=== PATIENT | male | born 1950 | race Two or more races ===

== ENCOUNTER 2016-02-29 23:09 | Inpatient (IN) | payer OTHER ==
[2016-02-29] MEDS ORDERED: NS 2,000 ML IV ONE (23:19)
--- NOTE | 2016-02-29 23:26 | EDPHY ---
H & P Stated Complaint: unresponsive all day with c/o CP per son and HPI/ROS: HPI CHIEF COMPLAINT: Unresponsive HISTORY OF PRESENT ILLNESS: This patient is a 65-year-old male significant past medical history for CVA with left-sided hemiparesis, sepsis, AFib, hypertension, diabetes, seizure disorder, aspiration pneumonia, he presents emergency room with his son and by private vehicle upon arrival to the triage room is noted that he has right gaze preference with significant weakness to the left side, and does not appear very well he is immediately brought back to ER room 1 where he is found to be hypotensive in the 80s systolic. Does have a right gaze preference, and left-sided hemiparesis on exam. His and son tell me that he has been like this all day he has been sitting on the couch slumped over to the right. He states that they think he was last normal about a week ago however states that they had a greatly help him get to the couch around 230 today. The knows that he has been weak all day. Patient did complain of some chest discomfort. Upon arrival here in emergency room I did evaluate him he is hypotensive he has significant weakness on the left side which may be baseline, he has a right gaze preference, he appears ill. Past Medical History: Aspiration pneumonia, CVA, left-sided hemiparesis, sepsis , AFib, hypertension, diabetes, seizure Past Surgical History: Peg tube Social History: lives at home. Family History: Noncontributory ROS REVIEW OF SYSTEMS: A comprehensive 10 point review of systems is otherwise negative aside from elements mentioned in the history of present illness. Exam Constitutional appears ill, right-sided gaze preference, dehydrated, triage nursing summary reviewed, vital signs reviewed, awake/alert. ( vital signs noted to be hypoxic, tachycardic) Eyes normal conjunctivae and sclera, EOMI, PERRLA. HENT normal inspection, atraumatic, dry mucous membranes , no epistaxis, neck supple/ no meningismus, no raccoon eyes. Respiratory clear to auscultation bilaterally, normal breath sounds, no respiratory distress, no wheezing. Cardiovascular rate normal, regular rhythm, no murmur, no edema, distal pulses normal. Gastrointestinal soft, non-tender, no rebound, no guarding, normal bowel sounds, no distension, no pulsatile mass. Genitourinary no CVA tenderness. Musculoskeletal no midline vertebral tenderness, full range of motion, no calf swelling, no tenderness of extremities, no meningismus, good pulses, neurovascularly intact. Skin pink, warm, & dry, no rash, skin atraumatic. Neurologic right-sided gaze preference, left-sided upper extremity and left lower extremity weakness 1+ strength, upper and lower. Pupils are equal. Psychiatric normal mood/affect. Heme/Lymph/Immune no lymphadenopathy. Differential Diagnosis: includes but is not limited to in a particular order sepsis, septic shock, dehydration, kidney failure, electrolyte abnormality, pneumonia, intracranial bleed, stroke, cardiac arrhythmia, acute CA Medical Decision Making: this patient had 2 large-bore IVs established be resuscitated with IV fluids due to hypotension, will check blood pressure in both arms, patient had a chest x-ray, CT scan of the head, CT scan of the chest will check blood work EKG patient will need to be admitted we will obtain blood cultures. Re-evaluation: EKG interpretation by me on record in [employer] system. Impression time of EKG 2313, this is AFib rate of 80 do not appreciate acute ischemic changes specifically no ST elevation. CT scan of the Head without IV contrast The results of the study are negative for acute intracranial abnormality, there are multiple old infarcts, no acute bleed, The study was read by Dr. Flores I viewed the images myself on the PACS system. CT scan of the Chest with IV contrast The results of the study are negative for anything acute there is mucous plugging noted in the bilateral lung champion however no focal pneumonia. The study was read by Dr. Myo. I viewed the images myself on the PACS system. ED x-ray: chest x-ray one view negative for acute cardiopulmonary disease image interpreted by myself. 0123: re-evaluation at this time this patient is not febrile his blood pressure initially was hypotensive in the 80s he did receive a 2 L fluid bolus here in the emergency room, and his blood work was delayed due to multiple draws and the lab telling us that his labs are abnormal could we re-draw. They did Release them. We did redraw them and his BMP is consistently hypernatremic. He does appear dehydrated on exam. 0132: I did re-evaluate this patient is blood pressure is now in the 120s he is moving everything appropriately he does follow with good eye tracking he does seem improved. He remains afebrile. Does have Figueroa catheter in place with good urine output. I did go over his blood work and electrolytes with Nephrology and spoke specifically with Dr. Chase. He recommends this patient being started on D5W at 75 cc an hour and check a BMP or early this morning 5AM/ 6AM. This patient does appear hypovolemic hypernatremic however does not appear severely dehydrated. 0130: Consulted Dr. Chase. Will See Patient in-house. Critical Care: Total Critical Care Time Spent Managing this Patient: 60 Minutes. This time was spent Exclusively with this patient. This Care was exclusive of procedures. The Organ System/life at risk was neurologic, cardiogenic, electrolyte, dehydration This Patient was in Critical Condition because severe electrolyte abnormalities , initially unresponsive 0133: I patient hospitalist service to admit this patient to the intensive care unit. 0157: spoke with the hospitalist service Dr. Esteban who agrees to admit this patient. Of note I have ordered this patient IV potassium replacement, IV magnesium, IV calcium and D5 water. Patient at this time is hemodynamically stable and stable for transfer to the ICU is blood pressure is greatly improved he remains afebrile. EKG repeat: Time of EKG 1:40 a.m. this is underlying AFib rate of 95. I do not appreciate acute ischemic changes. Source: Patient, Family - Medical/Surgical History Hx Asthma: No Hx Chronic Respiratory Disease: No Hx Diabetes: No Hx Cardiac Disease: Yes Hx Renal Disease: No Hx Cirrhosis: No Hx Alcoholism: No Hx HIV/AIDS: No Hx Splenectomy or Spleen Trauma: No Other PMH: HTN, x3CVA, aphasic. check viewer present for doctor and review patient history - Social History Smoking Status: Never smoked Constitutional: Initial Vital Signs Temperature (C) 36.4 C 02/29/16 23:12 Heart Rate 76 02/29/16 23:12 Respiratory Rate 20 02/29/16 23:12 Blood Pressure 88/60 L 02/29/16 23:12 O2 Sat (%) 87 L 02/29/16 23:12 O2 Delivery Mode Nasal Cannula O2 (L/minute) 2 Allergies/Adverse Reactions: No Known Allergies Allergy (Verified 02/01/16 03:33) Home Medications: Medication Instructions Recorded Metoprolol Tartrate [Lopressor 100 50 mg PO BID 04/20/15 mg (*)] Propafenone HCl [Rythmol 150mg (*)] 150 mg PO BID #0 tab 11/17/14 Enalapril Maleate [Vasotec 10 MG 10 mg PO BID 02/01/16 (*)] Warfarin Sodium [Coumadin 2MG (*)] 2 mg PO TUTHSA@16 02/01/16 Warfarin Sodium [Coumadin 2MG (*)] 4 mg PO SUWEFR@16 02/01/16 hydrALAZINE [Apresoline] 25 mg PO Q8 PRN #90 tab 02/11/16 Phenytoin Sodium Extended 100 mg PO HS 03/01/16 [Dilantin (*)] Medical Decision Making - Data Points Laboratory Results: Laboratory Results 03/01/16 01:00 03/01/16 01:00 Medications Given: Discontinued Medications Sodium Chloride (Ns) 2,000 mls @ 0 mls/hr IV ONCE ONE PRN Reason: As Directed Stop: 02/29/16 23:20 Last Admin: 02/29/16 23:29 Dose: 2,000 mls Potassium Chloride (Potassium Cl 20 Meq (Premix)) 100 mls @ 50 mls/hr IV EDNOW ONE Stop: 03/01/16 02:24 Last Admin: 03/01/16 01:08 Dose: 100 mls Calcium Gluconate (Calcium Gluconate 1 Gm (Premix)) 50 mls @ 100 mls/hr IV EDNOW ONE Stop: 03/01/16 01:54 Last Admin: 03/01/16 02:20 Dose: 50 mls Magnesium Sulfate (Magnesium Sulf 2 Gm (Premix)) 50 mls @ 50 mls/hr IV EDNOW ONE Stop: 03/01/16 02:24 Last Admin: 03/01/16 01:55 Dose: 50 mls Sodium Chloride (Ns) 1,000 mls @ 0 mls/hr IV ONCE ONE PRN Reason: Wide Open Stop: 03/01/16 12:00 Last Admin: 03/01/16 13:34 Dose: 1,000 mls Departure - Departure Disposition: [facility] Acute Clinical Impression: Acute hypernatremia, Dehydration Condition: Critical
[2016-02-29 23:45] LABS: % IMMATURE GRANULYOCYTES 0.5 % (0.0-1.1); ABSOLUTE IMMATURE GRANULOCYTES 0.06 10^3/uL (0.00-0.10); ADD DIFF? NO; ADD MORPH? NO; ADD SCAN? NO; ATYPICAL LYMPHOCYTE FLAG 10 (0-99); FRAGMENT RBC FLAG 20 (0-99); HEMATOCRIT 46.8 % (40.0-51.0); LEFT SHIFT FLG 10 (0-99); LIPEMIA HEMOLYSIS FLAG 80 (0-99); MEAN CELL HEMOGLOBIN 29.8 pg (27.9-34.1); MEAN CELL HEMOGLOBIN CONCENTR. 32.1 g/dL (32.4-36.7); PLATELET CLUMPS FLAG 40 (0-99); PLATELET COUNT 167 10^3/uL (150-400); RED BLOOD CELL COUNT 5.03 10^6/uL (4.40-6.38); RED CELL DISTRIBUTION WIDTH 15.9 % (11.5-15.2)
[2016-02-29 23:49] LABS: COLOR YELLOW; LEUKOCYTE ESTERASE,URINE NEGATIVE (NEGATIVE); NITRITE,URINE NEGATIVE (NEGATIVE)
--- NOTE | 2016-02-29 23:59 | CPEKG ---
Heart Rate: 80 RR Interval: 750 P-R Interval: 190 QRSD Interval: 84 QT Interval: 368 QTC Interval: 425 P Turpin: 0 QRS Turpin: 67 T Wave Turpin: 53 EKG Severity - BORDERLINE ECG - EKG Impression: UNKNOWN RHYTHM, IRREGULAR RATE 58-103 EKG Impression: LOW VOLTAGE IN FRONTAL LEADS Electronically Signed By: Dawson Birmingham 02-Mar-2016 07:02:04
[2016-03-01 00:07] LABS: BASE EXCESS -4.4 mEq/L (-2.5-2.5); BICARBONATE 19 mEq/L (22-26); MEASURED OXYGEN SATURATION 95 % (92-95); PCO2 32 mmHg (34-38); PO2 77 mmHg (65-75); TCO2 20 mEq/L (23-27)
[2016-03-01 00:16] LABS: ALANINE AMINOTRANSFERASE 28 IU/L (21-72); ALKALINE PHOSPHATASE 39 IU/L (38-126); ANION GAP 6 mEq/L (8-16); ASPARTATE AMINOTRANSFERASE 21 IU/L (17-59); BILIRUBIN,TOTAL < 0.1 mg/dL (0.1-1.4); BILIRUBIN-CONJUGATED 0.1 mg/dL (0.0-0.5); CARBON DIOXIDE 12 mEq/l (22-31); CHLORIDE 141 mEq/L (97-110); CREATININE 0.6 mg/dL (0.7-1.3); ETHANOL SERUM < 10 mg/dL (0-10); GLOMERULAR FILTRATION RATE > 60; GLUCOSE 54 mg/dL (70-100); MAGNESIUM 1.2 mg/dL (1.6-2.3); SODIUM 159 mEq/L (134-144); TOTAL PROTEIN 3.1 g/dL (6.3-8.2)
[2016-03-01 00:18] LABS: ALBUMIN < 1.0 g/dL (3.5-5.0)
[2016-03-01 00:20] LABS: CALCIUM 3.6 mg/dL (8.5-10.4); POTASSIUM 2.2 mEq/L (3.5-5.2)
[2016-03-01] MEDS ORDERED: POTASSIUM Cl (KCl) 100 ML IV ONE (00:25)
[2016-03-01 00:28] LABS: PROTIME(PATIENT) 60.4 SEC (12.0-15.0)
[2016-03-01] MEDS ORDERED: IOPAMIDOL (ISOVUE-300) 50 ML VIAL IV ONE (00:28)
[2016-03-01 00:29] LABS: APTT 64.5 SEC (23.0-38.0)
[2016-03-01 00:34] LABS: TROPONIN I < 0.012 ng/mL (0-0.034)
[2016-03-01 00:38] LABS: CREATINE KINASE-MB FRACTION < 0.22 ng/mL (0-3.19)
[2016-03-01 00:43] LABS: INR 6.76 (0.83-1.16)
[2016-03-01 00:51] LABS: ANION GAP 6 mEq/L (8-16); CARBON DIOXIDE 18 mEq/l (22-31); CHLORIDE 137 mEq/L (97-110); CREATININE 0.9 mg/dL (0.7-1.3); GLOMERULAR FILTRATION RATE > 60; GLUCOSE 66 mg/dL (70-100); POTASSIUM 3.2 mEq/L (3.5-5.2)
[2016-03-01 00:54] LABS: CALCIUM 5.1 mg/dL (8.5-10.4); SODIUM 161 mEq/L (134-144)
[2016-03-01 01:09] LABS: % IMMATURE GRANULYOCYTES 0.6 % (0.0-1.1); ABSOLUTE IMMATURE GRANULOCYTES 0.08 10^3/uL (0.00-0.10); ADD DIFF? NO; ADD MORPH? NO; ADD SCAN? NO; ATYPICAL LYMPHOCYTE FLAG 10 (0-99); FRAGMENT RBC FLAG 20 (0-99); HEMATOCRIT 42.7 % (40.0-51.0); HEMOGLOBIN 13.4 g/dL (13.7-17.5); LEFT SHIFT FLG 10 (0-99); LIPEMIA HEMOLYSIS FLAG 80 (0-99); MEAN CELL HEMOGLOBIN 29.6 pg (27.9-34.1); MEAN CELL HEMOGLOBIN CONCENTR. 31.4 g/dL (32.4-36.7); MEAN CELL VOLUME 94.3 fL (81.5-99.8); MEAN PLATELET VOLUME 14.4 fL (8.7-11.7); PLATELET CLUMPS FLAG 10 (0-99); PLATELET COUNT 148 10^3/uL (150-400); RED BLOOD CELL COUNT 4.53 10^6/uL (4.40-6.38)
[2016-03-01 01:18] LABS: ANION GAP 11 mEq/L (8-16); CALCIUM 7.4 mg/dL (8.5-10.4); CARBON DIOXIDE 21 mEq/l (22-31); CHLORIDE 131 mEq/L (97-110); CREATININE 1.3 mg/dL (0.7-1.3); ETHANOL SERUM < 10 mg/dL (0-10); GLOMERULAR FILTRATION RATE 55; GLUCOSE 83 mg/dL (70-100); MAGNESIUM 2.2 mg/dL (1.6-2.3); POTASSIUM 3.9 mEq/L (3.5-5.2)
[2016-03-01 01:20] LABS: SODIUM 163 mEq/L (134-144)
[2016-03-01] MEDS ORDERED: CALCIUM GLUCONATE 50 ML IV ONE (01:25)
[2016-03-01] MEDS ORDERED: MAGNESIUM SULF 2 GM/WATER 50 ML IV ONE (01:25)
[2016-03-01 01:31] LABS: INR 3.22 (0.83-1.16); PROTIME(PATIENT) 33.4 SEC (12.0-15.0)
[2016-03-01 01:32] LABS: APTT 41.9 SEC (23.0-38.0)
[2016-03-01 01:41] LABS: TROPONIN I < 0.012 ng/mL (0-0.034)
[2016-03-01] MEDS ORDERED: D5W 1,000 ML IV SCH (01:45)
[2016-03-01] MEDS ORDERED: D50W 25 GM/50 ML SYR IVP PRN (03:06)
[2016-03-01 05:28] LABS: IONIZED CALCIUM 1.18 MMOL/L (1.12-1.30)
[2016-03-01 05:34] LABS: HEMATOCRIT 45.1 % (40.0-51.0); HEMOGLOBIN 14.1 g/dL (13.7-17.5); MEAN CELL HEMOGLOBIN 29.8 pg (27.9-34.1); MEAN CELL HEMOGLOBIN CONCENTR. 31.3 g/dL (32.4-36.7); MEAN CELL VOLUME 95.3 fL (81.5-99.8); RED BLOOD CELL COUNT 4.73 10^6/uL (4.40-6.38); RED CELL DISTRIBUTION WIDTH 15.9 % (11.5-15.2)
[2016-03-01 05:43] LABS: INR 3.16 (0.83-1.16); PROTIME(PATIENT) 32.9 SEC (12.0-15.0)
[2016-03-01 05:50] LABS: ANION GAP 9 mEq/L (8-16); CALCIUM 8.2 mg/dL (8.5-10.4); CARBON DIOXIDE 25 mEq/l (22-31); CHLORIDE 128 mEq/L (97-110); CREATININE 1.3 mg/dL (0.7-1.3); GLOMERULAR FILTRATION RATE 55; GLUCOSE 96 mg/dL (70-100); POTASSIUM 4.8 mEq/L (3.5-5.2)
[2016-03-01 05:54] LABS: SODIUM 162 mEq/L (134-144)
[2016-03-01 06:02] LABS: TROPONIN I 0.016 ng/mL (0-0.034)
--- NOTE | 2016-03-01 07:02 | CT ---
CT Scan of Head (Without Contrast) Clinical Indications: Unresponsive. Technique: Axial CT images were acquired from foramen magnum through vertex, without intravenous contrast. Soft tissue and bone windows were reviewed on the computer workstation. Images were reconstructed down to 1.25 mm images. Dose reduction techniques were utilized. Comparison: January 12, 2015. Findings: Numerous cortical infarcts in both hemispheres are unchanged. Lacunar infarcts in right thalamus and basal ganglia are unchanged. Old infarct of left internal capsule is unchanged. No new lesions are identified. No evidence of intracranial hemorrhage. Chronic diffuse cortical atrophy is severe. Bone windows demonstrate no fracture. Paranasal sinuses and mastoid air cells are normally aerated. Impression: Multiple bilateral cortical and lacunar infarcts. No acute abnormality is identified. I discussed results with Dr. Dawson Birmingham at 0015 hours. [facility]
--- NOTE | 2016-03-01 07:09 | DX ---
Portable Chest February 29, 2016 2332 hours History: Chest pain. Comparison: February 11, 2016. Findings: Frontal view (only) shows clear lungs and no masses. Heart size and pulmonary vessels appear normal. No evidence of pleural effusion. Impression: Negative frontal chest radiograph. MTDD
--- NOTE | 2016-03-01 07:25 | CT ---
CT Scan of the Chest (With Contrast) Clinical Indications: Unresponsive. History of atrial fibrillation and diabetes , dyspnea, chest pain. Technique: During power injection of 80 mL Isovue-300 intravenously, multidetector [address] imaging was performed from the superior thoracic inlet to the diaphragm. The radiologist manipulated images at the computer workstation. Dose reduction techniques were utilized. Comparison: Previous noncontrast CT January 14, 2015. Findings: Prior mild infiltrate in the superior segment of the right lower lobe is not currently visualized, although the patient did not do a good job holding his breath. There is chronic calcified coronary artery disease of the LAD and circumflex vessels. No thrombus is identified in the left atrium or left atrial appendage. There is no pericardial effusion. There is no obvious pneumonia or pleural effusion. There is bilateral lower lobe bronchial wall thickening with scattered mucous plugging without evidence of peripheral atelectasis. There is shotty bilateral noncalcified hilar adenopathy. There is no evidence of a lung mass. No pulmonary nodule is identified. The upper thoracic esophagus looks circumferentially thickened, similar to January 2015 and there is a small amount of fluid in the mid thoracic esophagus where there is an air fluid level present, findings suggesting the possibility of either chronic esophagitis related to reflux or an esophageal peristaltic problem. Doubt esophageal carcinoma considering the stability since 2014. There is predominantly noncalcified slightly irregular atherosclerotic plaque involving the thoracic aorta diffusely, without evidence of ulceration or a flow-limiting stenosis. There is no evidence of an aortic dissection or aneurysm. The thyroid gland is unremarkable. No skeletal pathology other than some degenerative spurring in the thoracic spine. Impression: 1. Lower lobe bronchitis with mucous plugging, but without pneumonia or atelectasis. 2. Chronic coronary artery disease without failure. 3. Esophagus consistent with either esophagitis related to reflux or an esophageal peristaltic abnormality. This patient might benefit from an esophagram and/or endoscopic evaluation. 4. No cardiac thrombus identified. Result discussed with Dr. Birmingham at 1 a.m. Final results are concordant with the initial interpretation. General information for patients regarding this examination can be found at [email or web address]. If you have questions or comments about this report, please contact me at (hospital) or [phone] (cell). POS99 MTDD
--- NOTE | 2016-03-01 07:30 | PDGENHP ---
History and Physical - Chief Complaint altered mental status - History of Present Illness Patient is a 65-year-old male with history of multiple CVAs with resulting vascular dementia, chronic dysphagia and left-sided hemiparesis, atrial fibrillation on systemic anticoagulation, high diabetes, hypertension, seizure disorder and hospitalization for aspiration pneumonia who presents the hospital with decreased mental status per family. Patient unable to provide history due to dementia so history obtained largely from the patient's son and . Per son, patient has been more lethargic since yesterday. Over the course of the evening he began complaining of abdominal/chest pain and coughing. By the evening patient was unarousable to family so they decided to bring him to the hospital. Per patient has been taking oral intake normally with a past 2 weeks, with no obvious evidence aspiration event. Was also not complaining of nausea, vomiting, diarrhea or dysuria. On arrival to the ED patient was initially mildly hypoxic, hypotensive, unresponsive with possible right gaze preference. He was given 2 L IV fluid bolus and labs were drawn which revealed significant hypernatremia and hyperchloremia. CT of the head was then obtained did not reveal any acute infarct or hemorrhage. Renal was consulted and recommended D5W which was initiated in the ER. Patient was then admitted to the hospital service for further management History Information - Allergies/Home Medication List Allergies/Adverse Reactions: No Known Allergies Allergy (Verified 02/01/16 03:33) Home Medications: Metoprolol Tartrate [Lopressor 100 mg (*)] 50 mg PO BID 06/02/14 [Last Taken ] Enalapril Maleate [Vasotec 10 MG (*)] 10 mg PO DAILY 02/01/16 [Last Taken ] Warfarin Sodium [Coumadin 2MG (*)] 4 mg PO SUMOTUWETHFR@02/01/16 [Last Taken 01/31/16] Warfarin Sodium [Coumadin 2MG (*)] 6 mg PO SA@02/01/16 [Last Taken 01/30/16] Phenytoin [Dilantin] 100 mg PO DAILY 03/01/16 [Last Taken Unknown] I have personally reviewed and updated: family history, medical history, social history, surgical history - Past Medical History atrial fibrillation (On Coumadin), CVA (Multiple CVAs, persistent left hemipareses, dysphagia with aspiration), dementia (Vascular dementia), diabetes type 2, hypertension, seizures - Surgical History Additional surgical history: hip fracture with intramedullary pinning 12/2014 - Family History Positive for: non-pertinent - Social History Smoking Status: Never smoked Alcohol Use: None Drug Use: None Additional social history: Lives at home with his and daughter who are primary caregivers. He is unable to speak, walk or feed himself. Review of Systems ROS: 10pt was reviewed & negative except for what was stated in HPI & below Physical Exam Temp Pulse Resp BP Pulse Ox 36.3 C 80 16 135/91 H 97 03/01/16 04:00 03/01/16 06:00 03/01/16 06:00 03/01/16 06:00 03/01/16 06:00 O2 (L/minute) 2 Constitutional: not in pain, chronically ill appearing Eyes: PERRL, anicteric sclera, EOMI Ears, Nose, Mouth, Throat: hearing normal, no oral mucosal ulcers, poor dentition, dry mucous membranes, No oral thrush Cardiovascular: regular rate and rhythym, no murmur, rub, or gallop, pulses symmetric bilaterally, No JVD, No edema Peripheral Pulses: 2+: dorsalis-pedis (R), dorsalis-pedis (L) Respiratory: no respiratory distress, no rales or rhonchi, clear to auscultation Gastrointestinal: normoactive bowel sounds, soft, non-tender abdomen, No tenderness, No guarding, No rebound Genitourinary: no bladder fullness, no bladder tenderness Skin: warm, normal color, no rashes or abrasions, no fluctuance, No mottled Neurologic: other (Oriented to person, not to date or Hospital; left hemiparesis strength 2/5, right 5/5) Lab Data & Imaging Review 03/01/16 05:15 03/01/16 05:15 WBC 11.90 10^3/uL (3.80-9.50) H 03/01/16 05:15 RBC 4.73 10^6/uL (4.40-6.38) 03/01/16 05:15 Hgb 14.1 g/dL (13.7-17.5) 03/01/16 05:15 POC Hgb 15.6 gm/dL (14.5-17.3) 02/29/16 23:17 Hct 45.1 % (40.0-51.0) 03/01/16 05:15 POC Hct 46 % (42.8-50.6) 02/29/16 23:17 MCV 95.3 fL (81.5-99.8) 03/01/16 05:15 MCH 29.8 pg (27.9-34.1) 03/01/16 05:15 MCHC 31.3 g/dL (32.4-36.7) L 03/01/16 05:15 RDW 15.9 % (11.5-15.2) H 03/01/16 05:15 Plt Count 152 10^3/uL (150-400) 03/01/16 05:15 MPV 14.4 fL (8.7-11.7) H 03/01/16 01:00 Neut % (Auto) 77.4 % (39.3-74.2) H 03/01/16 01:00 Lymph % (Auto) 14.0 % (15.0-45.0) L 03/01/16 01:00 [place] % (Auto) 4.6 % (4.5-13.0) 03/01/16 01:00 Eos % (Auto) 2.9 % (0.6-7.6) 03/01/16 01:00 Baso % (Auto) 0.5 % (0.3-1.7) 03/01/16 01:00 Nucleat RBC Rel Count 0.0 % (0.0-0.2) 03/01/16 01:00 Absolute Neuts (auto) 9.97 10^3/uL (1.70-6.50) H 03/01/16 01:00 Absolute Lymphs (auto) 1.80 10^3/uL (1.00-3.00) 03/01/16 01:00 Absolute Monos (auto) 0.59 10^3/uL (0.30-0.80) 03/01/16 01:00 Absolute Eos (auto) 0.38 10^3/uL (0.03-0.40) 03/01/16 01:00 Absolute Basos (auto) 0.07 10^3/uL (0.02-0.10) 03/01/16 01:00 Absolute Nucleated RBC 0.00 10^3/uL (0-0.01) 03/01/16 01:00 Immature Gran % 0.6 % (0.0-1.1) 03/01/16 01:00 Immature Gran # 0.08 10^3/uL (0.00-0.10) 03/01/16 01:00 PT 32.9 SEC (12.0-15.0) H 03/01/16 05:15 INR 3.16 (0.83-1.16) H 03/01/16 05:15 APTT 41.9 SEC (23.0-38.0) H 03/01/16 01:00 Puncture Site LEFT RADIAL 02/29/16 23:55 Patient Temperature 36.4 DEGREES 02/29/16 23:55 pCO2 32 mmHg (34-38) L 02/29/16 23:55 pO2 77 mmHg (65-75) H 02/29/16 23:55 Total CO2 20 mEq/L (23-27) L 02/29/16 23:55 ABG pH 7.40 (7.35-7.45) 02/29/16 23:55 ABG O2 Saturation 95 % (92-95) 02/29/16 23:55 ABG Base Excess -4.4 mEq/L (-2.5-2.5) L 02/29/16 23:55 VBG Lactic Acid 1.2 mmol/L (0.7-2.1) D 03/01/16 01:00 Total O2 Concentration 2.0 LITERS 02/29/16 23:55 POC Sodium 163 mEq/L (134-144) H 02/29/16 23:17 Sodium 162 mEq/L (134-144) H* 03/01/16 05:15 POC Potassium 5.8 mEq/L (3.3-5.0) H 02/29/16 23:17 Potassium 4.8 mEq/L (3.5-5.2) 03/01/16 05:15 POC Chloride 127 mEq/L (96-108) H 02/29/16 23:17 Chloride 128 mEq/L (97-110) H 03/01/16 05:15 Carbon Dioxide 25 mEq/l (22-31) 03/01/16 05:15 Bicarbonate 19 mEq/L (22-26) L 02/29/16 23:55 Anion Gap 9 mEq/L (8-16) 03/01/16 05:15 POC BUN 42 mg/dL (7-23) H 02/29/16 23:17 BUN 23 mg/dL (7-23) 03/01/16 05:15 Creatinine 1.3 mg/dL (0.7-1.3) 03/01/16 05:15 POC Creatinine 1.5 mg/dL (0.8-1.5) 02/29/16 23:17 Estimated GFR 55 03/01/16 05:15 Glucose 96 mg/dL (70-100) 03/01/16 05:15 POC Glucose 95 mg/dL (70-100) 02/29/16 23:17 Calcium 8.2 mg/dL (8.5-10.4) L 03/01/16 05:15 Ionized Calcium 1.18 MMOL/L (1.12-1.30) 03/01/16 05:15 Phosphorus 3.3 mg/dL (2.5-4.5) 03/01/16 05:15 Magnesium 3.0 mg/dL (1.6-2.3) H 03/01/16 05:15 Total Bilirubin < 0.1 mg/dL (0.1-1.4) L 02/29/16 23:30 Conjugated Bilirubin 0.1 mg/dL (0.0-0.5) 02/29/16 23:30 Unconjugated Bilirubin 0.0 mg/dL (0.0-1.1) 02/29/16 23:30 AST 21 IU/L (17-59) 02/29/16 23:30 ALT 28 IU/L (21-72) 02/29/16 23:30 Alkaline Phosphatase 39 IU/L (38-126) 02/29/16 23:30 Creatine Kinase 21 IU/L (0-224) 02/29/16 23:30 CK-MB (CK-2) Fraction < 0.22 ng/mL (0-3.19) 02/29/16 23:30 Troponin I 0.016 ng/mL (0-0.034) 03/01/16 05:15 NT-Pro-B Natriuret Pep 93 pg/mL (0-125) 02/29/16 23:30 Total Protein 3.1 g/dL (6.3-8.2) L 02/29/16 23:30 Albumin < 1.0 g/dL (3.5-5.0) L 02/29/16 23:30 Lipase 38.0 IU/L (23-300) 02/29/16 23:30 Urine Color YELLOW 02/29/16 23:30 Urine Appearance CLEAR 02/29/16 23:30 Urine pH 5.0 (5.0-7.5) 02/29/16 23:30 Ur Specific [place] 1.023 (1.002-1.030) 02/29/16 23:30 Urine Protein NEGATIVE (NEGATIVE) 02/29/16 23:30 Urine Ketones NEGATIVE (NEGATIVE) 02/29/16 23:30 Urine Blood NEGATIVE (NEGATIVE) 02/29/16 23:30 Urine Nitrate NEGATIVE (NEGATIVE) 02/29/16 23:30 Urine Bilirubin NEGATIVE (NEGATIVE) 02/29/16 23:30 Urine Urobilinogen NEGATIVE EU (0.2-1.0) 02/29/16 23:30 Ur Leukocyte Esterase NEGATIVE (NEGATIVE) 02/29/16 23:30 Ur Culture Indicated? NOT INDICATED (NI) 02/29/16 23:30 Urine Osmolality 704 mosmo/kg (300-900) 03/01/16 03:46 Ur Random Creatinine 57.5 mg/dL 03/01/16 03:46 Ur Random Sodium 175 mEq/L (30-90) H 03/01/16 03:46 Urine Glucose NEGATIVE (NEGATIVE) 02/29/16 23:30 Urine Opiates Screen NEGATIVE (NEGATIVE) 02/29/16 23:30 Urine Barbiturates NON-NEGATIVE (NEGATIVE) H 02/29/16 23:30 Ur Phencyclidine Scrn NEGATIVE (NEGATIVE) 02/29/16 23:30 Ur Amphetamine Screen NEGATIVE (NEGATIVE) 02/29/16 23:30 U Benzodiazepines Scrn NEGATIVE (NEGATIVE) 02/29/16 23:30 Urine Cocaine Screen NEGATIVE (NEGATIVE) 02/29/16 23:30 U Marijuana (THC) Screen NEGATIVE (NEGATIVE) 02/29/16 23:30 Ethyl Alcohol < 10 mg/dL (0-10) 03/01/16 01:00 Visualized and Interpreted Chest x-ray results: Yes Visualized and Interpreted imaging results: Yes Interpretation: CT Head: chronic b/l lacunar infarcts, no acute abnormality. CT chest: mucus plugging, with bronchitis EKG Interpretation: Positive for: normal sinsus rhythm Assessment & Plan Assessment: Pt is 65/M with vascular dementia, DM2, HTN, Afib on systemic anticoagulation, multiple CVAs with residual L hemiparesis, chronic dysarthria, chronic dysphagia with aspiration and seizure disorder who presents to the ED with altered mental status. ED work up reveals marked hypernatremia. Plan: # acute on chronic encephalopathy Acute encephalopathy likely related to hypernatremia, with possible seizure also noted in ED. ON my evaluation, patient was able to verbalize and follow simple commands. CT head does not show any acute changes. Will correct electrolyte abnormalities and reassess. Will also check phenytoin level and cont home dosing. # hypernatremia, hyperchloremia, hypokalemia Patient appears hypovolemic on exam, and was initially hypotensive on presentation. He has received 2L NS bolus for resuscitation and has been initiated on D5W for correction of Na. Likely hypovolemic/dehydration hypernatremia. Renal has been consulted and will f/u recs. D5W goal to correct free water deficit, without decreasing Na > 10 meq. # Afib on systemic anticoagulation HR stable on presentation, INR slightly supratherapeutic. Will monitor and cont home rate controlling meds. # CVA with hemiparesis, dysphagia, dysarthria Patient appears to be at baseline other than change in mental status. He has been taking PO intake after failed G-tube placement in last admission. Will need to re-eval swallow and place on aspiration precautions. # chronic aspiration, mucus plugging CT does not show any obvious pneumonia or infiltrate, but does have mucus plugging present. Currently respiratory status has stabilized, however, initially in acute hypoxic respiratory failure. Will cont O2 support and no indication for antibiotics at this time. # Dm2 Will monitor FS and cover with Lispro ss. # dispo: admit to inpt service for > 2 [place] stay # gen: NPO pending swallow eval DVT ppx: on coumadin Full code
[2016-03-01] MEDS: INSULIN LISPRO 100 UNIT/ML SC SCH ×3 (08:46→18:53)
--- NOTE | 2016-03-01 10:09 | ECHO ---
[id number] + + [address] : : [place] [address] : : [phone] + + Adult Echocardiographic Report + + :Name: ISAURO ARANAdimas Date: 03/01/2016 07:27 AM BP: 121/ 75 mmHg : : Hospital Admission Number: [id number] Location: 252: :: 1950 Gender: Male : :Age: 65 yrs Race: OT : :Reason For Study: r/o chf : :History: cva : + + MMode/2D Measurements & Calculations IVSd: 1.1 cm LVIDd: 4.0 cm FS: 32.4 % Ao root diam: 2.5 cm LVPWd: 0.96 cm LVIDs: 2.7 cm EDV(Teich): 69.8 ml ESV(Teich): 27.0 ml EF(Teich): 61.3 % Normal Measurement Values: + + :LVIDd (3.5-5.7cm) IVSd (0.6-1.1cm) LVPWd (0.6-1.1cm) Aortic Root (2.0-3.7cm)Left Atrium (1.5-4.0cm): :LV Vol(d) (76-115ml) LV Vol(s) (29-48ml) Ejec Fraction (50-65%)PV Kobi (0.6- 1.2m/s) TV Kobi (0.4-1.0m/s) : :MV E Kobi (0.8-1.0m/s)MV A Kobi (0.3-1.0m/s)LVOT Kobi (0.7-1.2m/s) Asc Ao Kobi ( 0.9-1.8m/s) : + + Doppler Measurements & Calculations PA V2 max: 64.1 cm/sec PA max P.6 mmHg Left Ventricle Grossly normal left ventricular size and function. There is borderline concentric left ventricular hypertrophy. Ejection Fraction = 60%. Regional wall motion abnormalities cannot be excluded due to limited visualization. Right Ventricle The right ventricle is not well visualized. Atria Mild bi-atrial enlargement by visual assessment. Mitral Valve The mitral valve is not well visualized. Tricuspid Valve The tricuspid valve is not well visualized. There is trace to mild tricuspid regurgitation. Aortic Valve The aortic valve is trileaflet. There is mild aortic valve calcification. Pulmonic Valve The pulmonic valve is not well visualized. Great Vessels The aortic root is not well visualized. Pericardium/Pleural There is no pericardial effusion. Conclusion Very technically difficult study; subcostal only window. Grossly normal left ventricular size and function. There is borderline concentric left ventricular hypertrophy. Ejection Fraction = 60%. Mild bi-atrial enlargement by visual assessment. There is trace to mild tricuspid regurgitation. The aortic root is not well visualized. Final Reading Physician: Jennifer Candelario signed on 03/01/2016 10:07 AM Ordering Physician: Gege Esteban Performed By: Bel Cleaning
[2016-03-01] MEDS ORDERED: NS 1,000 ML IV ONE (11:59)
[2016-03-01] MEDS ORDERED: hydrALAZINE 25 MG TAB PO PRN (12:07)
[2016-03-01 12:34] LABS: ANION GAP 6 mEq/L (8-16); CALCIUM 7.6 mg/dL (8.5-10.4); CARBON DIOXIDE 24 mEq/l (22-31); CHLORIDE 126 mEq/L (97-110); CREATININE 1.1 mg/dL (0.7-1.3); GLOMERULAR FILTRATION RATE > 60; GLUCOSE 99 mg/dL (70-100); POTASSIUM 4.3 mEq/L (3.5-5.2); SODIUM 156 mEq/L (134-144); SPECIMEN HEMOLYSIS 107
--- NOTE | 2016-03-01 12:57 | GCON ---
[f rep st] CONSULTATION DATE OF CONSULTATION: 03/01/2016 REFERRING PHYSICIAN: Gege Esteban MD REASON FOR CONSULTATION: Hypernatremia. IMPRESSION: 1. Hypernatremia, probable dehydration. 2. 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 RECOMMENDATIONS: 1. Bolus with saline. 2. Increase D5 water rate. 3. Continue close monitoring of sodium levels with goal of getting his sodium down into the mid 150s over the next 12-24 hours. HISTORY: Petey Longoria is a 65-year-old gentleman I have been asked to consult on by Dr. Albarran. He was admitted last night through the emergency room with altered mental status. He has been more lethargic. He has been less able to cooperate with his care. He has had decreased oral intake and decreased urine output. In the emergency room, he was evidently mildly hypoxic and h ypotensive. He initially was given 2 L of IV fluids. At that time, he was found to be hypernatremic with a sodium level of 162. He was placed on D5 water. In spite of D5 water overnight, his sodium levels have stayed in the low 160s. He has been nonoliguric with 850 cc of urine output overnight an d he has already made 300 cc out today. He has a baseline creatinine that looked to be about 1.0. H is admission creatinine was as low as 0.9, but has been 1.3 on measurement today. Urine studies have shown a urine sodium of 175 and a urine creatinine of 57 with a urine osmolality of 704. Since admi ssion, his blood pressure has been stable. His potassium, which was low, was replaced and has since normalized. His bicarbonate level has improved. PAST MEDICAL HISTORY: As described above. The patient is totally disabled and dependent on his [facility] for bathing, toileting, and feeding. He has underlying history of CVAs with underlying vascular d ementia. He has dysphagia and left hemiparesis. He has AFib and is on chronic anticoagulation for t his. He has diabetes, as well as hypertension. He has a seizure disorder, for which he is on Dilant in. SURGICAL HISTORY: Hip fracture pinning December 2014. MEDICATIONS: As an outpatient have been metoprolol, enalapril, warfarin, and Dilantin. ALLERGIES: None. REVIEW OF SYSTEMS: Unremarkable except for that contained in the history of present illness. The kim canales is unable to provide any history or review of systems. PHYSICAL EXAMINATION: VITAL SIGNS: He is afebrile with a temp of 36.6, pulse 85, respirations 21, b lood pressure 124/79. He is satting 92% on room air. APPEARANCE: No apparent distress. SKIN: Unr emarkable. NEUROLOGICALLY: Gazing to his right. He does not verbalize. He has spontaneous movemen ts of his extremities. NECK: Unremarkable. HEART: Irregular with no extra heart sounds. LUNGS: Decreased, but otherwise clear. ABDOMINAL: Positive bowel sounds. Soft, nontender. No rebound or guarding. No organomegaly or masses. EXTREMITIES: Free of edema. LABS: Most recent show a sodium of 162, potassium 4.8, BUN 23, creatinine 1.3. Calcium 8.2, magnesi um 3, phosphorous 3.3. Albumin level appears to be spuriously low at less than 1.0, but outpatient levels have been averaging right around 3 based on labs from 2015. ASSESSMENT: Mild acute renal failure with severe hypernatremia. I suspect the patient is simply deh ydrated. This would go along with his low blood pressure in the emergency room and the lack of edema in spite of his low albumin levels that have bee noted as an outpatient. I would volume resuscitate him further with additional normal saline. I would favor treating his deh ydration with saline first and then switching over to half-normal saline if needed. At the present t campbell, he is getting D5 water. I would continue this after bolusing him with the saline. I will adjust his fluids further once we start to see his sodium improve somewhat. At the present ti me, I think he needs simply more salt and more water to correct his problem. There is no obvious reason for the patient to have had decreased oral intake prior to his admission. It does sound like he had any sort of febrile illness. He has no evidence for either a urinary trac t infection or a respiratory infection based on his urinalysis or his chest x-ray. CT of his head sh owed no acute changes, but simply the old infarcts. Chest CT showed some lower lobe bronchitis with mucus plugging, but no pneumonia or atelectasis. There were some changes in the esophagus that could not otherwise be characterized. Echocardiogram done showed borderline LVH with a normal ejection fr action of 60% with no other significant abnormalities. /[id number]/MODL
[2016-03-01] MEDS: D5W 1,000 ML IV SCH (13:33)
[2016-03-01] MEDS: WARFARIN SODIUM 2 MG TAB PO SCH (15:25)
--- NOTE | 2016-03-01 18:17 | HOSPPROG ---
Hospitalist Progress Note Assessment/Plan: DIAGNOSIS: # SEVERE HYPERNATREMIA # DEHYDRATION LIKELY DUE TO POOR INTAKE # ADVANCED DEMENTIA WITH HISTORY OF MULTIPLE STROKES # DIABETES MELLITUS # HISTORY OF CHRONIC ATRIAL FIBRILLATION # SEIZURE HISTORY So far he has remained neurologically stable and with perhaps some mild increased by this afternoon, and his sodiums are coming down at an appropriate rate. PLANS: -I agree with Dr. Monzon recommendation recommendation of further saline administration and eventual change to half for quarter normal saline and thus he simply does not have improvement in the sodium level. -fall risk precautions -DVT prophylaxis -Follow sugars closely -therapies -Disposition to be determined as his sodium neurologic condition recover and we determine his abilities in the care the family can provide SUBJECTIVE: Patient denies any pain or nausea or other significant acute symptoms ( this is obtained through mechanical test technician and with his family. The patient is fairly demented and speaks very little and so it is unclear whether this is truly represents his symptoms this hard to say) OBJECTIVE Vitals reviewed: stable without fever school lunch monitor, my review: Sinus rhythm Exam: Sleepy but arousable, minimal verbal output but he does occasionally speak to his family. He makes good eye contact with them and does follow occasional commands; no evidence of focal weakness but very hard to do a motor exam skin warm dry color ok resps not labored lungs clear BSs heart regular abd soft nondistended bowel sounds present limbs warm, no edema iv site ok Laboratory data: Most recent sodium 156 Objective: Vital Signs Temp Pulse Resp BP Pulse Ox 36.7 C 100 15 121/79 H 97 03/01/16 16:00 03/01/16 16:00 03/01/16 16:00 03/01/16 16:00 03/01/16 16:00 Laboratory Results 03/01/16 05:15 03/01/16 11:46 02/29/16 03/01/16 03/02/16 06:59 06:59 06:59 Intake Total 2210 Output Total 650 525 Balance 1560 -525 PT 32.9 SEC (12.0-15.0) H 03/01/16 05:15 INR 3.16 (0.83-1.16) H 03/01/16 05:15 ICD10 Worksheet Patient Problems: Problems Problem Status Diagnosed Acute hypernatremia Acute Dehydration Acute ROBB (acute kidney injury) Acute Acute encephalopathy Acute Altered mental status Acute Blood loss anemia Acute Dementia Acute Femur fracture, left Acute HCAP (healthcare-associated pneumonia) Acute Hypernatremia Acute Overdose of cardiovascular agent Acute Palliative care encounter Acute Pneumonia Acute Sepsis Acute CVA (cerebral vascular accident) Chronic Vascular dementia Chronic
[2016-03-01 21:11] LABS: ANION GAP 6 mEq/L (8-16); CALCIUM 7.2 mg/dL (8.5-10.4); CARBON DIOXIDE 24 mEq/l (22-31); CHLORIDE 120 mEq/L (97-110); GLOMERULAR FILTRATION RATE > 60; GLUCOSE 98 mg/dL (70-100); POTASSIUM 3.5 mEq/L (3.5-5.2); SODIUM 150 mEq/L (134-144)
[2016-03-01] MEDS: METOPROLOL TARTRATE 100 MG TAB PO SCH (21:38)
[2016-03-01] MEDS: ENALAPRIL MALEATE 10 MG TAB PO SCH (21:39)
[2016-03-01] MEDS: PHENYTOIN SODIUM EXTENDED 100 MG CAP PO SCH (21:39)
[2016-03-01] MEDS: PROPAFENONE HCL 150 MG TAB PO SCH (21:39)
[2016-03-02 05:45] LABS: ALBUMIN 2.2 g/dL (3.5-5.0); ANION GAP 9 mEq/L (8-16); CALCIUM 7.1 mg/dL (8.5-10.4); CARBON DIOXIDE 23 mEq/l (22-31); CHLORIDE 116 mEq/L (97-110); GLOMERULAR FILTRATION RATE > 60; GLUCOSE 123 mg/dL (70-100); POTASSIUM 3.4 mEq/L (3.5-5.2); SODIUM 148 mEq/L (134-144)
[2016-03-02] MEDS: INSULIN LISPRO 100 UNIT/ML SC SCH ×3 (08:00→17:42)
--- NOTE | 2016-03-02 08:25 | SOAPPROG ---
SOAP Progress Note Assessment/Plan: Assessment: 1. Severe hypernatremia. Ur appropriately concentrated. Appears due to dehydration/poor po intake. Discussed with son, would advise they ensure he drinks 6-8 glasses of fluid per day once back home. Na 148, nearly back to normal. Unclear what caused his recent decline. Dispo pending demonstration of ability to safely intake sufficient fluid. If safely drinking this am would d/c ivf later today and see if pt able to keep up with po intake. Will decrease to 75cc/h D5W now (ordered but appears to be running at 150). 2. Hypokalemia. Replace. Plan: 03/02/16 08:21 03/02/16 08:25 03/02/16 08:25 03/02/16 08:26 03/02/16 08:27 Subjective: Per son, pt is at baseline. No problems over night. Objective: Vital Signs Temp Pulse Resp BP Pulse Ox 36.5 C 68 16 130/98 H 93 03/02/16 08:00 03/02/16 08:00 03/02/16 08:00 03/02/16 08:00 03/02/16 08:00 Laboratory Results 03/01/16 05:15 03/02/16 05:15 03/01/16 03/02/16 03/03/16 05:59 05:59 05:59 Intake Total 2210 2986 Output Total 650 875 Balance 1560 2111 PT 32.9 SEC (12.0-15.0) H 03/01/16 05:15 INR 3.16 (0.83-1.16) H 03/01/16 05:15 In bed, awake, responsive, NAD RRR, no m/g/r CTAB Abdom soft, nontender No edema Oral mucosa moist, no skin tenting ICD10 Worksheet Patient Problems: Problems Problem Status Diagnosed Acute hypernatremia Acute Dehydration Acute ROBB (acute kidney injury) Acute Acute encephalopathy Acute Altered mental status Acute Blood loss anemia Acute Dementia Acute Femur fracture, left Acute HCAP (healthcare-associated pneumonia) Acute Hypernatremia Acute Overdose of cardiovascular agent Acute Palliative care encounter Acute Pneumonia Acute Sepsis Acute CVA (cerebral vascular accident) Chronic Vascular dementia Chronic
[2016-03-02] MEDS ORDERED: POTASSIUM CL 20 MEQ TAB PO ONE (08:28)
[2016-03-02] MEDS: PROPAFENONE HCL 150 MG TAB PO SCH ×2 (09:23→21:23)
[2016-03-02] MEDS: METOPROLOL TARTRATE 100 MG TAB PO SCH ×2 (09:23→21:26)
[2016-03-02] MEDS: ENALAPRIL MALEATE 10 MG TAB PO SCH ×2 (09:23→21:25)
[2016-03-02] MEDS: D5W 1,000 ML IV SCH ×2 (13:18→22:56)
[2016-03-02] MEDS ORDERED: WARFARIN SODIUM 2 MG TAB PO SCH (16:00)
[2016-03-02] MEDS ORDERED: WARFARIN SODIUM 2 MG TAB PO ONE (16:00)
--- NOTE | 2016-03-02 16:25 | HOSPPROG ---
Hospitalist Progress Note Assessment/Plan: # SEVERE HYPERNATREMIA * due to decreased p.o. intake * stop IV fluids if taking adequate p.o. * encouraged family to in courage water intake # DEHYDRATION LIKELY DUE TO POOR INTAKE # ADVANCED DEMENTIA WITH HISTORY OF MULTIPLE STROKES # DIABETES MELLITUS * insulin # HISTORY OF CHRONIC ATRIAL FIBRILLATION * follow INR # SEIZURE HISTORY * on medication Subjective: No new events Objective: Vital Signs Temp Pulse Resp BP Pulse Ox 36.5 C 68 16 130/98 H 93 03/02/16 08:00 03/02/16 08:00 03/02/16 08:00 03/02/16 08:00 03/02/16 08:00 Laboratory Results 03/01/16 05:15 03/02/16 05:15 03/01/16 03/02/16 03/03/16 05:59 05:59 05:59 Intake Total 2210 2986 Output Total 650 875 650 Balance 1560 2111 -650 PT 32.9 SEC (12.0-15.0) H 03/01/16 05:15 INR 3.16 (0.83-1.16) H 03/01/16 05:15 - Physical Exam Constitutional: no apparent distress, appears nourished, not in pain Eyes: anicteric sclera, EOMI Ears, Nose, Mouth, Throat: moist mucous membranes Respiratory: no respiratory distress Gastrointestinal: normoactive bowel sounds, soft, non-tender abdomen, no palpable masses Skin: warm Neurologic: No AAOx3 Psychiatric: other ( somewhat lethargic) ICD10 Worksheet Patient Problems: Problems Problem Status Diagnosed Acute hypernatremia Acute Dehydration Acute ROBB (acute kidney injury) Acute Acute encephalopathy Acute Altered mental status Acute Blood loss anemia Acute Dementia Acute Femur fracture, left Acute HCAP (healthcare-associated pneumonia) Acute Hypernatremia Acute Overdose of cardiovascular agent Acute Palliative care encounter Acute Pneumonia Acute Sepsis Acute CVA (cerebral vascular accident) Chronic Vascular dementia Chronic
[2016-03-02 17:04] LABS: INR 3.34 (0.83-1.16); PROTIME(PATIENT) 34.4 SEC (12.0-15.0)
[2016-03-02 18:51] LABS: COLOR YELLOW; LEUKOCYTE ESTERASE,URINE TRACE (NEGATIVE); NITRITE,URINE NEGATIVE (NEGATIVE)
[2016-03-02 19:02] LABS: MUCUS TRACE /lpf (NONE-1+); RBC,URINE 50-182 /hpf (0-3)
[2016-03-02] MEDS: PHENYTOIN SODIUM EXTENDED 100 MG CAP PO SCH (22:16)
[2016-03-02] MEDS: PHENYTOIN 100 MG/4 ML UDL PO SCH (22:56)
[2016-03-03 06:09] LABS: INR 2.61 (0.83-1.16); PROTIME(PATIENT) 28.2 SEC (12.0-15.0)
[2016-03-03 06:11] LABS: ALBUMIN 2.7 g/dL (3.5-5.0); CALCIUM 7.6 mg/dL (8.5-10.4); CARBON DIOXIDE 23 mEq/l (22-31); CHLORIDE 117 mEq/L (97-110); CREATININE 0.9 mg/dL (0.7-1.3); GLOMERULAR FILTRATION RATE > 60; GLUCOSE 81 mg/dL (70-100); MAGNESIUM 2.1 mg/dL (1.6-2.3); SODIUM 148 mEq/L (134-144)
[2016-03-03 06:25] LABS: ANION GAP 8 mEq/L (8-16)
--- NOTE | 2016-03-03 07:26 | SOAPPROG ---
SOAP Progress Note Assessment/Plan: Assessment: 1. Severe hypernatremia. Ur appropriately concentrated. Appears due to dehydration/poor po intake. Discussed with . Na still 148 despite getting ivf yesterday all day. Did pass several stools. Only drank 300cc. Likely needs closer to 1 L intake to keep up daily (more if having diarrhea, etc ), 1 L to make up deficit. Can try to encourage po intake this am. Unclear what caused his recent decline. If nothing reversible, pt at high risk for relapse after discharge. Dispo pending demonstration of ability to safely intake sufficient fluid. On 75cc/h D5W now but nurse held as pt was pulling at IV. 2. Hypokalemia. Replaced. Will sign off at this point, please call back if we can be of further assistance. Plan: 03/03/16 07:27 Subjective: Ate dinner last night but only 300cc po intake of H2O yesterday. says he is not drinking much lately. Objective: Vital Signs Temp Pulse Resp BP Pulse Ox 36.6 C 67 20 150/100 H 95 03/02/16 22:00 03/03/16 05:56 03/02/16 22:00 03/03/16 05:56 03/03/16 05:56 Laboratory Results 03/01/16 05:15 03/03/16 05:48 03/02/16 03/03/16 03/04/16 05:59 05:59 05:59 Intake Total 2986 2044 Output Total 875 1450 Balance 2111 594 PT 28.2 SEC (12.0-15.0) H 03/03/16 05:48 INR 2.61 (0.83-1.16) H 03/03/16 05:48 Awake, pleasant, in dyana, grasping at me during exam RRR, no m/g/r CTAB Abdom soft, nontender No edema ICD10 Worksheet Patient Problems: Problems Problem Status Diagnosed Acute hypernatremia Acute Dehydration Acute ROBB (acute kidney injury) Acute Acute encephalopathy Acute Altered mental status Acute Blood loss anemia Acute Dementia Acute Femur fracture, left Acute HCAP (healthcare-associated pneumonia) Acute Hypernatremia Acute Overdose of cardiovascular agent Acute Palliative care encounter Acute Pneumonia Acute Sepsis Acute CVA (cerebral vascular accident) Chronic Vascular dementia Chronic
[2016-03-03] MEDS: INSULIN LISPRO 100 UNIT/ML SC SCH ×3 (07:40→19:26)
[2016-03-03] MEDS: METOPROLOL TARTRATE 100 MG TAB PO SCH ×2 (10:13→21:17)
[2016-03-03] MEDS: ENALAPRIL MALEATE 10 MG TAB PO SCH ×2 (10:15→21:18)
[2016-03-03] MEDS: PROPAFENONE HCL 150 MG TAB PO SCH ×2 (10:15→21:18)
[2016-03-03] MEDS: D5W 1,000 ML IV SCH (10:35)
--- NOTE | 2016-03-03 14:01 | WOCRNPDOC ---
WOCRN Advanced Assessment Note - Skin Integrity Problem, Advanced Assess Coccyx Pressure Injury Dressing Type: Allevyn Life Dressing Description: Clean/Dry, Intact Exudate Amount: None Nona Wound Tissue: Erythema, Non-blanching, Painful/Tender Wound Bed Color: Red Wound Bed Constitution: Granulation Tissue Site Measurement - Head-to-Toe Length X Width X Depth (cm): 0.4x0.2x0.2 Pressure Injury Stage: Stage 3 Pressure Injury Present on Admit: (Unknown) Skin Integrity Problem Comment: IAD on buttocks with a small stage 3 pressure injury directly on the coccyx. Will order new support surface and update dressing orders. Will follow up on Wednesday 03/08.
--- NOTE | 2016-03-03 15:32 | HOSPPROG ---
Hospitalist Progress Note Assessment/Plan: 65-year-old male with previous multiple CVAs presenting with altered mental status and hypernatremia * hypernatremia * improving * due to decreased p.o. intake * acute on chronic encephalopathy * initially thought to be urinary tract infection this morning but possibly new CVA * will get a stat MRI * urinary tract infection * with IV ceftriaxone * chronic atrial fibrillation * INR is therapeutic * previous multiple CVAs with significant debility at baseline * type 2 diabetes * seizure disorder * vascular dementia Subjective: For attendant this morning per family. Initially thought to be urinary tract infection but stat team was called this afternoon. His right facial droop seems to be new per . Objective: Vital Signs Temp Pulse Resp BP Pulse Ox 36.8 C 62 18 86/54 L 97 03/03/16 14:37 03/03/16 14:37 03/03/16 14:37 03/03/16 14:37 03/03/16 14:37 Laboratory Results 03/01/16 05:15 03/03/16 05:48 03/02/16 03/03/16 03/04/16 05:59 05:59 05:59 Intake Total 2986 2044 240 Output Total 875 1450 Balance 2111 594 240 PT 28.2 SEC (12.0-15.0) H 03/03/16 05:48 INR 2.61 (0.83-1.16) H 03/03/16 05:48 - Physical Exam Constitutional: no apparent distress, appears nourished, chronically ill appearing Eyes: anicteric sclera Ears, Nose, Mouth, Throat: moist mucous membranes, hearing normal, ears appear normal Cardiovascular: regular rate and rhythym, no murmur, rub, or gallop Respiratory: no respiratory distress, no rales or rhonchi, clear to auscultation Gastrointestinal: normoactive bowel sounds, soft, non-tender abdomen, no palpable masses Skin: warm Neurologic: other ( Only responsive vigorous stimuli and opens eyes. Not conversive. Seems to be moving all 4 extremities although not very much) ICD10 Worksheet Patient Problems: Problems Problem Status Diagnosed Acute hypernatremia Acute Dehydration Acute ROBB (acute kidney injury) Acute Acute encephalopathy Acute Altered mental status Acute Blood loss anemia Acute Dementia Acute Femur fracture, left Acute HCAP (healthcare-associated pneumonia) Acute Hypernatremia Acute Overdose of cardiovascular agent Acute Palliative care encounter Acute Pneumonia Acute Sepsis Acute CVA (cerebral vascular accident) Chronic Vascular dementia Chronic
--- NOTE | 2016-03-03 17:02 | MR ---
MRI of the Brain (Without Contrast) at 1558 hours Clinical Indication: Confusion, altered mental status, previous infarcts. COMPARISON: CT brain February 29, 2016 Technique: T1-weighted images were acquired axially and sagittally from the foramen magnum to the ve rtex. Axial fast inversion recovery, fast T2-weighted, and diffusion-weighted axial images were obta ined without contrast. Findings: Old cortical infarct in the left frontal lobe anterior middle cerebral artery territory wit h cortical and white matter encephalomalacia. Old lacunar infarcts bilateral frontal lobe deep white matter as well as bilateral basal ganglia. Multiple hemosiderin deposits throughout the bilateral cer ebral hemispheres, bilateral cerebellar hemispheres, and brainstem consistent with amyloid angiopathy . Old infarct in the mesial aspect left parietal lobe also noted with cortical encephalomalacia. The ventricles, cisterns, and sulci are widened consistent with atrophy. No hydrocephalus, midline sh ift, herniation, or epidural/subdural hematomas. No intracranial hemorrhage or masses. Diffusion weig hted sequence demonstrates no acute infarct. Cerebellar tonsils are in normal position. Pituitary gla nd is normal in size. Normal signal flow-void in the superior sagittal sinus, basilar artery, and claudia ateral internal carotid arteries indicating patency. Paranasal sinuses and mastoid air cells are idris r. Scattered hyperintense T2/FLAIR signal foci throughout bilateral cerebral white matter. Impression: 1. Old infarcts involving bilateral basal ganglia, left frontal lobe, and left parietal lobe. 2. No acute infarct, acute hemorrhage, hydrocephalus, mass effect, or herniation. 3. Multiple hemosiderin deposits throughout bilateral cerebral hemispheres, brainstem and bilateral c erebellar hemispheres likely representing amyloid angiopathy. 4. Mild diffuse atrophy. 5. Multiple nonspecific hyperintense T2/FLAIR signal abnormalities in the white matter of bilateral c erebral hemispheres. Differential diagnosis includes severe microvascular ischemic gliosis, versus le ss likely post-infectious/post-inflammatory sequela.
[2016-03-03] MEDS: WARFARIN SODIUM 2 MG TAB PO SCH (17:56)
[2016-03-03 18:23] LABS: BASE EXCESS -1.6 mEq/L (-2.5-2.5); BICARBONATE 22 mEq/L (22-26); MEASURED OXYGEN SATURATION 96 % (92-95); PCO2 33 mmHg (34-38); PO2 79 mmHg (65-75); TCO2 23 mEq/L (23-27)
[2016-03-03] MEDS: PHENYTOIN 100 MG/4 ML UDL PO SCH (21:17)
[2016-03-04] MEDS: D5W 1,000 ML IV SCH ×2 (03:03→17:12)
[2016-03-04 05:49] LABS: ALBUMIN 2.5 g/dL (3.5-5.0); ANION GAP 7 mEq/L (8-16); CALCIUM 7.5 mg/dL (8.5-10.4); CARBON DIOXIDE 23 mEq/l (22-31); CHLORIDE 114 mEq/L (97-110); CREATININE 0.9 mg/dL (0.7-1.3); GLOMERULAR FILTRATION RATE > 60; GLUCOSE 82 mg/dL (70-100); POTASSIUM 3.9 mEq/L (3.5-5.2); SODIUM 144 mEq/L (134-144)
[2016-03-04] MEDS: PROPAFENONE HCL 150 MG TAB PO SCH ×2 (08:56→21:08)
[2016-03-04] MEDS: METOPROLOL TARTRATE 100 MG TAB PO SCH ×2 (08:59→21:09)
[2016-03-04] MEDS: INSULIN LISPRO 100 UNIT/ML SC SCH ×3 (09:01→18:28)
[2016-03-04] MEDS: ENALAPRIL MALEATE 10 MG TAB PO SCH ×2 (13:04→21:08)
--- NOTE | 2016-03-04 14:36 | HOSPPROG ---
Hospitalist Progress Note Assessment/Plan: 65-year-old male with previous multiple CVAs presenting with altered mental status and hypernatremia * hypernatremia * improving * due to decreased p.o. intake * acute on chronic encephalopathy * MRI of the brain does not show any new CVAs. Possibly due to urinary tract infection. Seems to be getting better. I do wonder if this may be his new baseline and we may need to address the topic of palliative care * urinary tract infection * with IV ceftriaxone * chronic atrial fibrillation * INR is therapeutic * previous multiple CVAs with significant debility at baseline * type 2 diabetes * seizure disorder * vascular dementia Subjective: Per his he seems to be awake a little bit more today. No new events Objective: Vital Signs Temp Pulse Resp BP Pulse Ox 36.9 C 60 14 99/70 L 92 03/04/16 11:23 03/04/16 11:23 03/04/16 11:23 03/04/16 11:23 03/04/16 11:23 Laboratory Results 03/01/16 05:15 03/04/16 05:12 03/03/16 03/04/16 03/05/16 05:59 05:59 05:59 Intake Total 2044 1423 Output Total 1450 Balance 594 1423 PT 28.2 SEC (12.0-15.0) H 03/03/16 05:48 INR 2.61 (0.83-1.16) H 03/03/16 05:48 - Physical Exam Constitutional: no apparent distress, appears nourished, not in pain Eyes: anicteric sclera Cardiovascular: regular rate and rhythym, no murmur, rub, or gallop Respiratory: no respiratory distress Gastrointestinal: normoactive bowel sounds, soft, non-tender abdomen, no palpable masses Skin: warm Neurologic: other ( awaken some to stimuli non conversive) Psychiatric: encephalopathic ICD10 Worksheet Patient Problems: Problems Problem Status Diagnosed Acute hypernatremia Acute Dehydration Acute ROBB (acute kidney injury) Acute Acute encephalopathy Acute Altered mental status Acute Blood loss anemia Acute Dementia Acute Femur fracture, left Acute HCAP (healthcare-associated pneumonia) Acute Hypernatremia Acute Overdose of cardiovascular agent Acute Palliative care encounter Acute Pneumonia Acute Sepsis Acute CVA (cerebral vascular accident) Chronic Vascular dementia Chronic
[2016-03-04] MEDS ORDERED: WARFARIN SODIUM 2 MG TAB PO SCH (16:00)
[2016-03-04] MEDS: PHENYTOIN 100 MG/4 ML UDL PO SCH (21:08)
[2016-03-05 05:44] LABS: INR 2.08 (0.83-1.16); PROTIME(PATIENT) 23.5 SEC (12.0-15.0)
[2016-03-05 05:54] LABS: ALBUMIN 2.3 g/dL (3.5-5.0); ANION GAP 10 mEq/L (8-16); CALCIUM 7.3 mg/dL (8.5-10.4); CARBON DIOXIDE 21 mEq/l (22-31); CHLORIDE 112 mEq/L (97-110); CREATININE 0.8 mg/dL (0.7-1.3); GLOMERULAR FILTRATION RATE > 60; GLUCOSE 85 mg/dL (70-100); SODIUM 143 mEq/L (134-144)
[2016-03-05] MEDS: D5W 1,000 ML IV SCH (06:25)
[2016-03-05] MEDS: ENALAPRIL MALEATE 10 MG TAB PO SCH ×2 (08:41→20:50)
[2016-03-05] MEDS: METOPROLOL TARTRATE 100 MG TAB PO SCH ×2 (08:41→20:50)
[2016-03-05] MEDS: INSULIN LISPRO 100 UNIT/ML SC SCH ×3 (09:19→17:53)
[2016-03-05] MEDS: PROPAFENONE HCL 150 MG TAB PO SCH ×2 (09:43→20:50)
--- NOTE | 2016-03-05 15:21 | HOSPPROG ---
Hospitalist Progress Note Assessment/Plan: 65-year-old male with previous multiple CVAs presenting with altered mental status and hypernatremia * hypernatremia * resolved * due to decreased p.o. intake * encouraged to increase p.o. intake of water * did have PEG but was pulling it out * acute on chronic encephalopathy * MRI of the brain does not show any new CVAs. Possibly due to urinary tract infection. Seems to be getting better. I do wonder if this may be his new baseline and we may need to address the topic of palliative care * urinary tract infection * with IV ceftriaxone * chronic atrial fibrillation * INR is therapeutic * previous multiple CVAs with significant debility at baseline * type 2 diabetes * seizure disorder * vascular dementia * disposition * home tomorrow Subjective: Waking up a little bit more for family Objective: Vital Signs Temp Pulse Resp BP Pulse Ox 37.3 C 66 14 156/95 H 95 03/04/16 23:40 03/05/16 08:00 03/05/16 08:00 03/05/16 08:00 03/05/16 08:00 Microbiology 03/02/16 19:05 Urine Culture - Final Urine,Clean Catch Laboratory Results 03/01/16 05:15 03/05/16 05:22 03/04/16 03/05/16 03/06/16 05:59 05:59 05:59 Intake Total 1423 1352 Balance 1423 1352 PT 23.5 SEC (12.0-15.0) H 03/05/16 05:22 INR 2.08 (0.83-1.16) H 03/05/16 05:22 - Physical Exam Constitutional: no apparent distress, appears nourished, not in pain Eyes: anicteric sclera, EOMI Respiratory: no respiratory distress Neurologic: No AAOx3 Psychiatric: other ( arousable although sleepy) ICD10 Worksheet Patient Problems: Problems Problem Status Diagnosed Acute hypernatremia Acute Dehydration Acute ROBB (acute kidney injury) Acute Acute encephalopathy Acute Altered mental status Acute Blood loss anemia Acute Dementia Acute Femur fracture, left Acute HCAP (healthcare-associated pneumonia) Acute Hypernatremia Acute Overdose of cardiovascular agent Acute Palliative care encounter Acute Pneumonia Acute Sepsis Acute CVA (cerebral vascular accident) Chronic Vascular dementia Chronic
[2016-03-05 17:01] VITALS: TEMP 98.1
[2016-03-05] MEDS: WARFARIN SODIUM 2 MG TAB PO SCH (17:52)
[2016-03-05] MEDS: PHENYTOIN 100 MG/4 ML UDL PO SCH (20:50)
[2016-03-05 22:59] VITALS: O2SAT 94
[2016-03-06 05:46] LABS: ALBUMIN 2.6 g/dL (3.5-5.0); ANION GAP 7 mEq/L (8-16); CALCIUM 7.6 mg/dL (8.5-10.4); CARBON DIOXIDE 23 mEq/l (22-31); CHLORIDE 113 mEq/L (97-110); CREATININE 0.9 mg/dL (0.7-1.3); GLOMERULAR FILTRATION RATE > 60; GLUCOSE 79 mg/dL (70-100); POTASSIUM 4.3 mEq/L (3.5-5.2); SODIUM 143 mEq/L (134-144)
[2016-03-06 08:37] VITALS: BP 109/81; PULSE 72; RESP 14
[2016-03-06] MEDS: PROPAFENONE HCL 150 MG TAB PO SCH (08:51)
[2016-03-06] MEDS: METOPROLOL TARTRATE 100 MG TAB PO SCH (08:51)
[2016-03-06] MEDS: INSULIN LISPRO 100 UNIT/ML SC SCH (08:51)
[2016-03-06] MEDS: ENALAPRIL MALEATE 10 MG TAB PO SCH (08:51)
--- NOTE | 2016-03-06 09:11 | GDS ---
[f rep st] DISCHARGE SUMMARY DISCHARGE DIAGNOSES: 1. Severe hypernatremia due to decreased p.o. intake. 2. Acute on chronic encephalopathy. 3. Urinary tract infection. 4. History of cerebrovascular accident with significant debility at baseline. 5. Atrial fibrillation. HISTORY OF PRESENT ILLNESS: This is a 65-year-old male with a history of significant CVA. He presen rudolph with altered mental status. HOSPITAL COURSE: The patient had severe hypernatremia with a sodium of 163. He also had significant hypokalemia and hypocalcemia. He was given IV fluids as well as replacement of electrolytes. Over the next several days, he did improve. There was a time when he appeared to get worse and was diagn osed with a urinary tract infection. He was started on antibiotics at that time. MRI was also done of the brain as he was not improving as quickly as one would have liked. It did not show any CVAs. Discussions were had in terms of increasing the patient's p.o. intake of water, which the family had understood. We did consider PEG tube placement, although the family said he had one and kept pulling it out. DISPOSITION: Home. DISCHARGE MEDICATIONS: He is to resume his home medications and should be given Ceftin 250 mg b.i.d. for 5 more days. He should get a PT and INR done this week. Greater than 30 minutes spent in discharge. /[id number]/MODL
--- NOTE | 2016-03-06 10:47 | PDIAF ---
- Diagnosis Diagnosis: hypertnatremia Code Status: Full Code - Medication Management Discharge Medications: Medications to Continue on Transfer Metoprolol Tartrate [Lopressor 100 mg (*)] 50 mg PO BID 06/02/14 [Last Taken 22:00] Propafenone HCl [Rythmol 150mg (*)] 150 mg PO BID #0 tab 11/17/14 [Last Taken 22:00] Enalapril Maleate [Vasotec 10 MG (*)] 10 mg PO BID 02/01/16 [Last Taken 22:00] Warfarin Sodium [Coumadin 2MG (*)] 2 mg PO TUTHSA@16 02/01/16 [Last Taken ] Warfarin Sodium [Coumadin 2MG (*)] 4 mg PO SUWEFR@16 02/01/16 [Last Taken ] hydrALAZINE [Apresoline] 25 mg PO Q8 PRN #90 tab 02/11/16 [Last Taken Unknown] Phenytoin Sodium Extended [Dilantin (*)] 100 mg PO HS 03/01/16 [Last Taken 02/28 22:00] Cefuroxime Axetil [Ceftin (*)] 250 mg PO BID #10 tab 03/06/16 [Last Taken Unknown] Discharge Medications: Refer to the Discharge Home Medication list for PRN reason. - Orders Services needed: Home Care, Registered Nurse, Certified Certified Travel Counselor, Physical Therapy, Occupational Therapy Home Care Face to Face: I certify that this patient was under my care and that I had the required [id number] encounter meeting the encounter requirements on the discharge day. My findings support the fact that the patient is homebound as defined in CMS Chapter 7 Medicare Benefits Manual 30.1.1, The condition of the patient is such that there exists a normal inability to leave home and consequently, leaving home would require a considerable and taxing effort. - Labs/Radiology PT/INR Date: 03/09/16 - Follow Up Care Current Providers and Referrals: Olivia Kent MD [Primary Care Provider] - 3-5 days (need protime)
--- NOTE | 2016-03-22 10:10 | CPEKG ---
Heart Rate: 61 RR Interval: 984 P-R Interval: 242 QRSD Interval: 86 QT Interval: 436 QTC Interval: 440 P [place]: 0 QRS [place]: 60 T Wave [place]: 52 EKG Severity - ABNORMAL ECG - EKG Impression: ATRIAL FIBRILLATION, V-RATE 0-0 EKG Impression: LOW VOLTAGE IN FRONTAL LEADS Electronically Signed By: Kendell Mckeon 22-Mar-2016 13:14:05
== END 2016-03-06 11:17 | disposition home or self-care (01) | DRG 640 ==
LOC: F2N 03-01 02:45 → F3E 03-03 08:01
PROVIDERS: ADMIT Internal Medicine; ATTEND Internal Medicine
DX: E87.0 Hyperosmolality and hypernatremia (principal); I69.354 Hemiplegia and hemiparesis following cerebral infarction affecting left non-dominant side; G93.40 Encephalopathy, unspecified; N39.0 Urinary tract infection, site not specified; I48.2 Chronic atrial fibrillation; E11.9 Type 2 diabetes mellitus without complications; G40.909 Epilepsy, unspecified, not intractable, without status epilepticus; I69.398 Other sequelae of cerebral infarction; F01.50 Vascular dementia, unspecified severity, without behavioral disturbance, psychotic disturbance, mood disturbance, and anxiety; E87.6 Hypokalemia; E83.51 Hypocalcemia; Z79.01 Long term (current) use of anticoagulants
CPT/HCPCS: 80305; 82947-QW; 92526-GN; 92610-GN; 96365; 97162-GP; 97530-GP; G0480; J0610; J0696; J1815; Q9967

== ENCOUNTER 2016-03-16 15:34 | Emergency (ER) | payer OTHER ==
[2016-03-16] MEDS ORDERED: NS 1,000 ML IV ONE (16:02)
[2016-03-16 18:06] VITALS: RESP 12
--- NOTE | 2016-03-16 18:17 | EDPHY ---
H & P Time Seen by Provider: 03/16/16 15:47 HPI/ROS: HPI Diarrhea. 65-year-old male with vascular dementia secondary to multiple CVAs presents with family to the emergency department with complaint of diarrhea for the last 4 days. Diarrhea described as watery, dark brown stool. No bloody or melenic stool. No change in diet. No foreign travel. He has not had any complaints of abdominal pain. He is eating well. There has been no vomiting. No complaint of nausea. He was admitted to the hospital on March 01 and discharged on March 06 for management of severe hyponatremia. He also was diagnosed with a urinary tract infection at that time. He was discharged on a 5 day course of Ceftin. His family is concerned that because of the diarrhea his electrolytes her again abnormal. ROS: Constitutional: No fever, no chills. No change in mental status. Eyes: No discharge. No changes in vision. ENT: No sore throat. No nasal congestion or rhinorrhea. Respiratory: No cough. No shortness of breath. Cardiac: No chest pain, no palpitations. Gastrointestinal: No abdominal pain, no vomiting, as above. Genitourinary: No hematuria. No dysuria or increased frequency with urination. Musculoskeletal: No back pain. No neck pain. No myalgias or arthralgias. Skin: No rashes. Neurological: No headache. No new focal weakness. Review of systems obtained mostly through family. Past medical history: As above. Atrial fibrillation, on Coumadin, multiple CVAs with persistent left-sided hemiparesis, dysphagia with history of aspiration, vascular dementia, type 2 diabetes, seizures. Social history: No smoking. He lives with his and daughter who are primary caregivers. No alcohol. Physical Exam: General Appearance: Sitting upright. His daughter is currently feeding him chicken soup. This patient appears well-hydrated and well-nourished. Eyes: Pupils equal and round no pallor or injection. No lid edema, erythema or injection. Respiratory: There are no retractions, lungs are clear to auscultation with good air movement bilaterally. Cardiovascular: Regular rate and rhythm. No murmur. Gastrointestinal: Abdomen is soft and nontender, no masses, bowel sounds normal. No focal tenderness at McBurney's point. No Luther sign. Neurological: Motor sensory function at baseline. Skin: Warm and dry, no rashes. Musculoskeletal: Neck is supple and nontender. Extremities are symmetrical. All joints range without pain or impingement. Psychiatric: No agitation. No depression. Database: EKG: Imaging: Procedures: Emergency department course: IV was placed. I-STAT was performed. Electrolytes and hematocrit are normal. Patient has a benign abdomen. Stool studies have been ordered. He did go to the bathroom but produce urine only. Plan will be to send him home with stool collection kit. This can then be dropped off for our lab to but analyzed. The family feels comfortable taking him home and agree with this plan. Return to emergency department precautions were discussed. All of their questions were answered. He was discharged in good condition. Differential Diagnosis: The differential diagnosis on this patient includes but is not limited to diarrhea. This represents a partial list of diagnoses considered. These considerations are based on history, physical exam, past history, reassessment and diagnostic testing. Smoking Status: Never smoked Constitutional: Initial Vital Signs Temperature (C) 36.4 C 03/16/16 15:35 Heart Rate 55 L 03/16/16 15:35 Respiratory Rate 16 03/16/16 15:35 Blood Pressure 141/98 H 03/16/16 15:35 O2 Sat (%) 100 03/16/16 15:35 O2 Delivery Mode Room Air Allergies/Adverse Reactions: No Known Allergies Allergy (Verified 02/01/16 03:33) Home Medications: Medication Instructions Recorded Metoprolol Tartrate [Lopressor 100 50 mg PO BID 06/02/14 mg (*)] Propafenone HCl [Rythmol 150mg (*)] 150 mg PO BID #0 tab 11/17/14 Enalapril Maleate [Vasotec 10 MG 10 mg PO BID 02/01/16 (*)] Warfarin Sodium [Coumadin 2MG (*)] 2 mg PO TUTHSA@16 02/01/16 Warfarin Sodium [Coumadin 2MG (*)] 4 mg PO SUWEFR@16 02/01/16 hydrALAZINE [Apresoline] 25 mg PO Q8 PRN #90 tab 02/11/16 Phenytoin Sodium Extended 100 mg PO HS 03/01/16 [Dilantin (*)] Cefuroxime Axetil [Ceftin (*)] 250 mg PO BID #10 tab 03/06/16 Medical Decision Making - Data Points Laboratory Results: 03/16/16 15:41 POC Hgb 15.0 gm/dL (14.5-17.3) POC Hct 44 % (42.8-50.6) POC Sodium 143 mEq/L (134-144) POC Potassium 3.7 mEq/L (3.3-5.0) POC Chloride 104 mEq/L (96-108) POC BUN 8 mg/dL (7-23) POC Creatinine 0.9 mg/dL (0.8-1.5) POC Glucose 101 H mg/dL (70-100) Medications Given: Discontinued Medications Sodium Chloride (Ns) 1,000 mls @ 3,000 mls/hr IV ONCE ONE Stop: 03/16/16 16:21 Last Admin: 03/16/16 16:03 Dose: 1,000 mls Point of Care Test Results: 03/16/16 15:41 POC Sodium 143 POC Potassium 3.7 POC Chloride 104 POC BUN 8 POC Creatinine 0.9 POC Glucose 101 H Departure - Departure Disposition: Home, Routine, Self-Care Clinical Impression: Diarrhea Condition: Good Instructions: Acute Diarrhea (ED) Additional Instructions: Read and follow provided instructions. Follow-up with your primary care physician in 1-2 days for re-evaluation. As discussed, return stool sample to the hospital laboratory for analysis. I put in the orders for his stool analysis tonight. Return to the emergency department for worsening diarrhea, vomiting, black or bloody stool or other serious concerns. Referrals: Olivia Kent MD [Primary Care Provider] - As per Instructions Print Language: Tunisian
[2016-03-16 18:58] VITALS: BP 130/75; PULSE 58; TEMP 98.6; O2SAT 95
[2016-03-17 14:47] LABS: OCCULT BLOOD FECES NEGATIVE (NEGATIVE)
== END 2016-03-16 18:59 | disposition home or self-care (01) ==
DX: R19.7 Diarrhea, unspecified (principal); E11.9 Type 2 diabetes mellitus without complications; Z86.73 Personal history of transient ischemic attack (TIA), and cerebral infarction without residual deficits; Z79.01 Long term (current) use of anticoagulants
CPT/HCPCS: 82947-QW

== ENCOUNTER 2016-03-20 15:03 | Observation (INO) | payer OTHER ==
--- NOTE | 2016-03-20 15:22 | CPEKG ---
Heart Rate: 49 RR Interval: 1224 P-R Interval: 257 QRSD Interval: 84 QT Interval: 444 QTC Interval: 401 P [place]: 0 QRS [place]: 57 T Wave [place]: 32 EKG Severity - ABNORMAL ECG - EKG Impression: atrial fibrillation EKG Impression: BRADYCARDIA EKG Impression: FIRST DEGREE AV BLOCK EKG Impression: LOW VOLTAGE IN FRONTAL LEADS Electronically Signed By: Massimo Trinidad 20-Mar-2016 22:41:00
--- NOTE | 2016-03-20 15:33 | EDPHY ---
HPI/HX/ROS/PE/MDM Narrative: CHIEF COMPLAINT: Weakness, lethargy HPI: The patient is a 65 y/o male arriving with his family with worsening weakness and lethargy over the last 24 hours. He has a history of atrial fibrillation, CVA with left-sided deficits and dementia, and recent diagnosis of C.diff. He was seen here on 03/16/16 after 4 days of diarrhea following Ceftin use for a UTI earlier in February. His stool culture was positive for C.diff and his PCP prescribed Flagyl with instructions to only use it if he continued to have diarrhea and vomiting. He has not taken any of the Flagyl yet. His family says beginning yesterday he was too weak to stay sitting up on the bed and today he was too lethargic to answer their questions. Family denies LOC, fever. Patient will follow commands, but is noncontributory during assessment. History obtained from family via [place] [employer] foreign language tutor. REVIEW OF SYSTEMS: Aside from elements discussed in the HPI, a comprehensive 10-point review of systems was reviewed and is negative. PMH: Atrial fibrillation on Coumadin, multiple CVAs with persistent left-sided hemiparesis, dysphagia with history of aspiration, vascular dementia, type 2 diabetes, seizures, recent diagnosis of C.diff 03/16/16 Prior medical records reviewed including ED visit 03/16/16 for diarrhea. SOCIAL HISTORY: Family at bedside, [place]ian-speaking PHYSICAL EXAM: General:Patient is lethargic, responsive but not answering questions, in mild distress. ENT:Eyes are normal to inspection. ENT inspection normal. Dry mucous membranes. Neck: Normal inspection. Full range of motion. Respiratory:No respiratory distress. Breath sounds normal bilaterally. Cardiovascular: Bradycardic rate and rhythm. Distant heart sounds. Strong peripheral pulses. Normal cap refill. Abdomen:The abdomen is nontender to palpation. There are no peritoneal signs. There are normal bowel sounds. Back: Normal to inspection. No tenderness to palpation. Skin: Pale. No rash. Warm and dry. Extremities: Normal appearance. Full range of motion. Neuro: Orientation not able to be determined. Left-sided hemiparesis. ED Course: IV established. Labs drawn including CBC, CHEM, PTPTT, BNP, LFT, protime. UA ordered. 500mL IV NS administered. Head CT and chest x-ray ordered. Patient placed on regional service manager. The 12 lead EKG was interpreted by myself. Slow atrial fibrillation vs. junctional rhythm. Rate in 40-50 range. See hard copy and/or "tracemaster" electronic copy for interpretation. Study: CT of the Head Indication: AMS Results: CT scan of the head was obtained. The results of the study are 1. Multiple old infarcts with moderate diffuse atrophy.. 2. No acute hemorrhage, hydrocephalus, or mass effect. 3. Cerebrovascular atherosclerosis. 4. No definite acute infarct. 5. Severe microvascular ischemic gliosis. 6. Consider MRI of the brain without and with contrast enhancement, if there is continued clinical concern. The study was read by the radiologist, Dr. Sosa. I viewed the images myself on the PACS system. Study: Chest x-ray Indication: Fatigue, weakness Results: Chest x-ray was obtained. The results of the study are 1. Multiple old infarcts with moderate diffuse atrophy.. 2. No acute hemorrhage, hydrocephalus, or mass effect. 3. Cerebrovascular atherosclerosis. 4. No definite acute infarct. 5. Severe microvascular ischemic gliosis. 6. Consider MRI of the brain without and with contrast enhancement, if there is continued clinical concern. The study was read by the radiologist, Dr. Sosa. I viewed the images myself on the PACS system. I discussed imaging results and work up thus far with the family and recommended admission, which they agreed to. 1954: Spoke with Dr. Gunter, hospitalist. He accepts admission. MDM: This patient presents with weakness and lethargy of unknown etiology. His CT head is negative for stroke. His electrolytes appear to be within normal limits. He is afebrile without evidence of infectious etiology. He does have an outpatient positive C diff test since this may be contributing, but does not seem to be the sole factor. The patient does have significant bradycardia which was noted on previous ER visits but not prior to that. My read of the EKG use slow atrial fibrillation. The patient's blood pressure is within normal limits however, so I do not believe that his bradycardia is the underlying etiology to his weakness. A chest x-ray does not suggest pericardial effusion or CHF. Discontinue lethargy despite IV rehydration, we will admit the patient to the hospitalist service for further workup. The patient's family declined catheterized urine specimen so I am unable to rule out UTI. - Data Points Laboratory Results: Laboratory Results 03/20/16 15:15 03/20/16 15:15 03/20/16 15:15 WBC 7.47 10^3/uL (3.80-9.50) RBC 4.81 10^6/uL (4.40-6.38) Hgb 14.2 g/dL (13.7-17.5) Hct 43.0 % (40.0-51.0) MCV 89.4 fL (81.5-99.8) MCH 29.5 pg (27.9-34.1) MCHC 33.0 g/dL (32.4-36.7) RDW 15.3 H % (11.5-15.2) Plt Count 326 10^3/uL (150-400) MPV 11.5 fL (8.7-11.7) Neut % (Auto) 74.2 % (39.3-74.2) Lymph % (Auto) 17.0 % (15.0-45.0) Harrison % (Auto) 3.3 L % (4.5-13.0) Eos % (Auto) 4.3 % (0.6-7.6) Baso % (Auto) 0.8 % (0.3-1.7) Nucleat RBC Rel Count 0.0 % (0.0-0.2) Absolute Neuts (auto) 5.54 10^3/uL (1.70-6.50) Absolute Lymphs (auto) 1.27 10^3/uL (1.00-3.00) Absolute Monos (auto) 0.25 L 10^3/uL (0.30-0.80) Absolute Eos (auto) 0.32 10^3/uL (0.03-0.40) Absolute Basos (auto) 0.06 10^3/uL (0.02-0.10) Absolute Nucleated RBC 0.00 10^3/uL (0-0.01) Immature Gran % 0.4 % (0.0-1.1) Immature Gran # 0.03 10^3/uL (0.00-0.10) PT 21.7 H SEC (12.0-15.0) INR 1.88 H (0.83-1.16) APTT 36.9 SEC (23.0-38.0) Sodium 143 mEq/L (134-144) Potassium 4.3 mEq/L (3.5-5.2) Chloride 108 mEq/L (97-110) Carbon Dioxide 23 mEq/l (22-31) Anion Gap 12 mEq/L (8-16) BUN 9 mg/dL (7-23) Creatinine 0.9 mg/dL (0.7-1.3) Estimated GFR > 60 Glucose 85 mg/dL (70-100) Calcium 8.7 mg/dL (8.5-10.4) Total Bilirubin 0.8 mg/dL (0.1-1.4) Conjugated Bilirubin 0.7 H mg/dL (0.0-0.5) Unconjugated Bilirubin 0.1 mg/dL (0.0-1.1) AST 35 IU/L (17-59) ALT 36 IU/L (21-72) Alkaline Phosphatase 101 IU/L (38-126) Troponin I < 0.012 ng/mL (0-0.034) NT-Pro-B Natriuret Pep 1780 H pg/mL (0-125) Total Protein 8.5 H g/dL (6.3-8.2) Albumin 3.9 g/dL (3.5-5.0) Medications Given: Discontinued Medications Sodium Chloride (Ns) 500 mls @ 0 mls/hr IV ONCE ONE PRN Reason: As Directed Stop: 03/20/16 15:45 Last Admin: 03/20/16 16:10 Dose: 500 mls General Time Seen by Provider: 03/20/16 15:21 Initial Vital Signs: Initial Vital Signs Temperature (C) 36.3 C 03/20/16 15:12 Heart Rate 58 L 03/20/16 15:12 Respiratory Rate 16 03/20/16 15:12 Blood Pressure 141/87 H 03/20/16 15:12 O2 Sat (%) 93 03/20/16 15:12 O2 Delivery Mode Nasal Cannula O2 (L/minute) 2 Allergies/Adverse Reactions: No Known Allergies Allergy (Verified 02/01/16 03:33) Home Medications: Medication Instructions Recorded Metoprolol Tartrate [Lopressor 100 50 mg PO BID 06/02/14 mg (*)] Propafenone HCl [Rythmol 150mg (*)] 150 mg PO BID #0 tab 11/17/14 Warfarin Sodium [Coumadin 2MG (*)] 2 mg PO TUTHSA@16 02/01/16 Warfarin Sodium [Coumadin 2MG (*)] 4 mg PO SUMOWEFR@16 02/01/16 Phenytoin Sodium Extended 100 mg PO HS 03/01/16 [Dilantin (*)] Enalapril Maleate [Vasotec 20 MG 20 mg PO DAILY 03/20/16 (*)] Departure - Departure Disposition: [facility] Inpatient Acute Clinical Impression: Weakness, Lethargy Condition: Fair Report Scribed for: Massimo Trinidad Report Scribed by: Rosario Randall Date of Report: 03/20/16 Time of Report: 15:25 Physician Review and Approval Statement: Portions of this note were transcribed by an ED scribe. I personally performed the history, physical exam, and medical decision making; and confirm the accuracy of the information in the transcribed note.
[2016-03-20 15:37] LABS: % IMMATURE GRANULYOCYTES 0.4 % (0.0-1.1); ABSOLUTE IMMATURE GRANULOCYTES 0.03 10^3/uL (0.00-0.10); ADD DIFF? NO; ADD MORPH? NO; ADD SCAN? NO; ATYPICAL LYMPHOCYTE FLAG 20 (0-99); FRAGMENT RBC FLAG 0 (0-99); HEMOGLOBIN 14.2 g/dL (13.7-17.5); LEFT SHIFT FLG 0 (0-99); LIPEMIA HEMOLYSIS FLAG 80 (0-99); MEAN CELL HEMOGLOBIN 29.5 pg (27.9-34.1); MEAN CELL VOLUME 89.4 fL (81.5-99.8); MEAN PLATELET VOLUME 11.5 fL (8.7-11.7); PLATELET CLUMPS FLAG 30 (0-99); PLATELET COUNT 326 10^3/uL (150-400); RED BLOOD CELL COUNT 4.81 10^6/uL (4.40-6.38); RED CELL DISTRIBUTION WIDTH 15.3 % (11.5-15.2)
[2016-03-20 15:44] LABS: INR 1.88 (0.83-1.16); PROTIME(PATIENT) 21.7 SEC (12.0-15.0)
[2016-03-20] MEDS ORDERED: NS 500 ML IV ONE (15:44)
[2016-03-20 15:53] LABS: ANION GAP 12 mEq/L (8-16); CALCIUM 8.7 mg/dL (8.5-10.4); CARBON DIOXIDE 23 mEq/l (22-31); CHLORIDE 108 mEq/L (97-110); CREATININE 0.9 mg/dL (0.7-1.3); GLOMERULAR FILTRATION RATE > 60; GLUCOSE 85 mg/dL (70-100); POTASSIUM 4.3 mEq/L (3.5-5.2); SODIUM 143 mEq/L (134-144)
[2016-03-20 16:03] LABS: ALANINE AMINOTRANSFERASE 36 IU/L (21-72); ALBUMIN 3.9 g/dL (3.5-5.0); ALKALINE PHOSPHATASE 101 IU/L (38-126); ASPARTATE AMINOTRANSFERASE 35 IU/L (17-59); BILIRUBIN,TOTAL 0.8 mg/dL (0.1-1.4); BILIRUBIN-CONJUGATED 0.7 mg/dL (0.0-0.5); BILIRUBIN-UNCONJUGATED 0.1 mg/dL (0.0-1.1); TOTAL PROTEIN 8.5 g/dL (6.3-8.2)
[2016-03-20 16:16] LABS: APTT 36.9 SEC (23.0-38.0)
--- NOTE | 2016-03-20 17:45 | DX ---
Chest, Single View at 1602 hours History: Bradycardia. Comparison: February 2016 Findings: Cardiac silhouette is borderline in size with atherosclerotic aorta. No pneumonia, congesti ve heart failure, pleural effusion, or pneumothorax. Impression: 1. Borderline cardiac size. 2. Atherosclerotic aorta. 3. No definite pneumonia or pulmonary edema. 4. Consider chest 2 views in the patient's medical condition permits.
--- NOTE | 2016-03-20 17:47 | CT ---
CT Brain (Without Contrast) at 1658 hours History: Altered mental status. Comparison: March 03, 2016. Technique: Axial computed tomographic images of the brain without contrast. Dose reduction techniques were utilized. Findings: Multiple old infarcts again noted involving bilateral basal ganglia, right thalamus, left frontal lobe, left parietal lobe, without associated definite acute infarct. No acute hemorrhage. Kurtis tricles, cisterns, and sulci are widened consistent with atrophy. No hydrocephalus, midline shift/her niation, or epidural/subdural hematomas. No acute intraparenchymal hemorrhage or mass effect. Cerebro vascular atherosclerosis. Hypodensities in the white matter of bilateral cerebral hemispheres. Bone windows demonstrate no displaced fractures. Paranasal sinuses and mastoid air cells are clear. Impression: 1. Multiple old infarcts with moderate diffuse atrophy.. 2. No acute hemorrhage, hydrocephalus, or mass effect. 3. Cerebrovascular atherosclerosis. 4. No definite acute infarct. 5. Severe microvascular ischemic gliosis. 6. Consider MRI of the brain without and with contrast enhancement, if there is continued clinical co ncern. Findings and recommendations discussed with Emergency Department physician, Dr. Massimo Trinidad at 171 8 hour, today. Final report concurs with initial preliminary interpretation.
[2016-03-20] MEDS ORDERED: ONDANSETRON 4 MG/2 ML VIAL IVP PRN (21:49)
[2016-03-20] MEDS ORDERED: ONDANSETRON DISINTEGRATING 4 MG TAB PO PRN (21:49)
[2016-03-20] MEDS ORDERED: ACETAMINOPHEN 325 MG TAB PO PRN (21:49)
[2016-03-20] MEDS ORDERED: NS 1,000 ML IV SCH (22:00)
--- NOTE | 2016-03-20 22:15 | GHP ---
[f rep st] HISTORY AND PHYSICAL DATE OF ADMISSION: 03/20/2016 CHIEF COMPLAINT: Lethargy. HISTORY OF PRESENT ILLNESS: This is a 65-year-old male who was recently hospitalized in early for hyponatremia. He has a history of several CVAs in the past with chronic debility, including si gnificant left-sided weakness. During his last hospitalization, he was also diagnosed with a urinary tract infection and was given antibiotics. He complained about diarrhea and came to the emergency d epartment a few days ago. Stool was sent off for C diff and came back positive. He was given a pres cription for Flagyl, but told not to start it unless he had significant diarrhea or fever. However, over the last couple of days, he has been having increasing lethargy and has not been eating very muc h. His family brought him here as they were worried he might develop an electrolyte imbalance. He i s not having significant amounts of diarrhea. No fever currently. No abdominal pain. No nausea or vomiting. REVIEW OF SYSTEMS: Limited review of systems obtained secondary to patient's vascular dementia. Per tinent positives and negatives are in the HPI. PAST MEDICAL HISTORY: 1. Multiple CVAs resulting in left-sided hemiparesis and dysphagia. 2. Atrial fibrillation, on anticoagulation. 3. Type 2 diabetes. 4. Hypertension. 5. Seizure disorder. 6. Previous aspiration pneumonia. MEDICATIONS: Reviewed. SOCIAL HISTORY: No smoking or alcohol. Lives with his family. FAMILY HISTORY: Reviewed and noncontributory. PHYSICAL EXAMINATION: VITAL SIGNS: Afebrile. Blood pressure is 166/97, heart rate is 49, and oxyge n saturation is 95% on room air. GENERAL: The patient is well developed and in no apparent distress . HEENT: Nonicteric sclerae. Extraocular muscles intact. Moist mucous membranes. NECK: Supple. No thyromegaly. LUNGS: Good effort. Clear to auscultation bilaterally. CARDIOVASCULAR: Slightly bradycardic. No murmurs, rubs, or gallops. ABDOMEN: Positive bowel sounds. Soft, nontender, nond istended. No hepatosplenomegaly. EXTREMITIES: No clubbing, cyanosis, or edema. SKIN: Without aimee h. Warm, dry, and intact. NEUROLOGIC: Aphasic with left hemiparesis. LABORATORY DATA: Chemistries normal. White count 7, hemoglobin 14, platelets 326. CT scan of the h ead shows old strokes, but nothing new. Chest x-ray shows no pneumonia. ASSESSMENT: This is a 65-year-old male with a previous history of significant cerebrovascular accide nt, presenting with lethargy and a recent diagnosis of Clostridium difficile. 1. Lethargy. This could be related to Clostridium difficile. He is not having a lot of diarrhea. Of note, he does not have an elevated white blood cell count, fever, or abdominal pain. However, at this time, in the absence of any other localizing symptoms, would treat his Clostridium difficile wit h oral vancomycin and see how he does. 2. History of cerebrovascular accident. 3. Atrial fibrillation. We will continue Coumadin, as he is a little bit subtherapeutic. We will s ee what his INR is tomorrow. 4. History of seizures. 5. Hypertension. 6. Recent hypernatremia. This seems to have resolved. /[id number]/MODL
[2016-03-20] MEDS: VANCOMYCIN 125 MG/2.5 ML UDL PO SCH (23:13)
[2016-03-21 05:52] LABS: % IMMATURE GRANULYOCYTES 0.4 % (0.0-1.1); ABSOLUTE IMMATURE GRANULOCYTES 0.03 10^3/uL (0.00-0.10); ADD DIFF? NO; ADD MORPH? NO; ADD SCAN? NO; ATYPICAL LYMPHOCYTE FLAG 20 (0-99); FRAGMENT RBC FLAG 0 (0-99); HEMATOCRIT 34.2 % (40.0-51.0); HEMOGLOBIN 11.5 g/dL (13.7-17.5); LEFT SHIFT FLG 0 (0-99); LIPEMIA HEMOLYSIS FLAG 80 (0-99); MEAN CELL HEMOGLOBIN 30.3 pg (27.9-34.1); MEAN CELL HEMOGLOBIN CONCENTR. 33.6 g/dL (32.4-36.7); MEAN CELL VOLUME 90.2 fL (81.5-99.8); MEAN PLATELET VOLUME 11.6 fL (8.7-11.7); PLATELET CLUMPS FLAG 0 (0-99); PLATELET COUNT 254 10^3/uL (150-400); RED BLOOD CELL COUNT 3.79 10^6/uL (4.40-6.38); RED CELL DISTRIBUTION WIDTH 15.2 % (11.5-15.2)
[2016-03-21 06:23] LABS: INR 1.9 (0.83-1.16); PROTIME(PATIENT) 21.9 SEC (12.0-15.0)
[2016-03-21] MEDS: VANCOMYCIN 125 MG/2.5 ML UDL PO SCH ×4 (06:24→19:58)
[2016-03-21 06:25] LABS: ANION GAP 8 mEq/L (8-16); CARBON DIOXIDE 22 mEq/l (22-31); CHLORIDE 113 mEq/L (97-110); CREATININE 0.8 mg/dL (0.7-1.3); GLOMERULAR FILTRATION RATE > 60; GLUCOSE 82 mg/dL (70-100); POTASSIUM 3.7 mEq/L (3.5-5.2); SODIUM 143 mEq/L (134-144)
[2016-03-21] MEDS ORDERED: METOPROLOL TARTRATE 100 MG TAB PO SCH (09:00)
[2016-03-21] MEDS: ENALAPRIL MALEATE 20 MG TAB PO SCH (09:54)
[2016-03-21] MEDS: PROPAFENONE HCL 150 MG TAB PO SCH ×2 (09:54→19:57)
--- NOTE | 2016-03-21 12:50 | HOSPPROG ---
Hospitalist Progress Note Assessment/Plan: 65-year-old with multi infarct dementia is admitted with increasing weakness and lethargy. Infectious workup revealed C diff colitis however patient has no abdominal complaints or diarrhea. Electrolytes are all normal. The noted that he was listing more to the right side which is new. Reviewed his CT scan which showed multi infarcts but nothing obviously new. # 65-year-old with progressive dementia. I suspect his symptoms are likely from that rather than C diff colitis. He has been on treatment for a week for the C diff colitis and his electrolytes are normal. * Check MRI for new infarct if negative he would likely be discharged home. * Suspect decline is from progressive dementia * Physical therapy while he is here. He does get all therapies at his home and is has 24 hour care # C diff colitis, patient without abdominal pain or tenderness and no diarrhea. Will continue p. O. Vanco to complete 10 full days I do not think this is contributing to his acute weakness at this time. # multi infarct dementia on anticoagulation with Coumadin # history of seizures, on medication Subjective: Patient nonverbal today in bed very lethargic difficult to arouse Objective: Vital Signs Temp Pulse Resp BP Pulse Ox 36.5 C 59 L 18 112/77 98 03/21/16 08:16 03/21/16 11:52 03/21/16 11:52 03/21/16 11:52 03/21/16 11:52 Laboratory Results 03/21/16 05:32 03/21/16 05:32 03/20/16 03/21/16 03/22/16 05:59 05:59 05:59 Intake Total 500 Balance 500 PT 21.9 SEC (12.0-15.0) H 03/21/16 05:32 INR 1.90 (0.83-1.16) H 03/21/16 05:32 - Physical Exam Constitutional: no apparent distress, other (Sleeping but arousable with difficulty) Eyes: PERRL, anicteric sclera Ears, Nose, Mouth, Throat: moist mucous membranes, ears appear normal Cardiovascular: regular rate and rhythym Respiratory: no respiratory distress, clear to auscultation Gastrointestinal: normoactive bowel sounds, soft, non-tender abdomen, no palpable masses Genitourinary: no bladder fullness Skin: warm, normal color Musculoskeletal: no joint effusions Neurologic: No AAOx3 Psychiatric: encephalopathic, poor memory, No interacting appropriately ICD10 Worksheet Patient Problems: Problems Problem Status Diagnosed Lethargy Acute Weakness Acute ROBB (acute kidney injury) Acute Acute encephalopathy Acute Acute hypernatremia Acute Altered mental status Acute Blood loss anemia Acute C. difficile diarrhea Acute 03/17/16 Dehydration Acute Dementia Acute Femur fracture, left Acute HCAP (healthcare-associated pneumonia) Acute Hypernatremia Acute Overdose of cardiovascular agent Acute Palliative care encounter Acute Pneumonia Acute Sepsis Acute CVA (cerebral vascular accident) Chronic Vascular dementia Chronic
--- NOTE | 2016-03-21 16:53 | MR ---
MRI of the Brain (Without Contrast) at 1509 hours Clinical Indication: Altered mental status, confusion. Comparison: MRI brain March 03, 2016. Technique: T1-weighted images were acquired axially and sagittally from the foramen magnum to the ve rtex. Axial fast inversion recovery, fast T2-weighted, and diffusion-weighted axial images were obta ined without contrast. Findings: The ventricles, cisterns, and sulci are widened consistent with atrophy. No hydrocephalus, midline shift, herniation, or epidural/subdural hematomas. No intracranial hemorrhage or masses. Dif fusion weighted sequence demonstrates 5-mm acute lacunar infarct in the left side of the [place] on axia l image 11. 7-mm acute lacunar infarct in the ventral aspect of the right cerebellar hemisphere on im age 8. Multiple old lacunar infarcts involving bilateral basal ganglia and thalami. No acute hemorrh age, or mass effect. Several hemosiderin deposits throughout bilateral cerebral and cerebellar hemisp heres, as well as brainstem suggesting amyloid angiopathy. Cerebellar tonsils are in normal position. Pituitary gland is normal in size. Normal signal flow-void in the superior sagittal sinus, basilar a rtery, and bilateral internal carotid arteries indicating patency. Paranasal sinuses and mastoid air cells are clear. Scattered hyperintense T2/FLAIR signal foci throughout bilateral cerebral white joy er. Impression: 1. Acute lacunar infarcts involving the left side of the [place] and right cerebellar hemisphere, not pr esent on previous MRI. 2. Multiple old lacunar infarcts bilateral basal ganglia and thalami. 3. No acute hemorrhage, hydrocephalus or mass effect. 4. Moderate diffuse atrophy. 5. Amyloid angiopathy. 6. Multiple nonspecific hyperintense T2/FLAIR signal abnormalities in the white matter of bilateral c erebral hemispheres. Differential diagnosis includes moderate microvascular ischemic gliosis, post-i nfectious/post-inflammatory sequela, versus less likely atypical demyelinating disease, or migraine-r elated sequela. Findings and recommendations discussed with Dr. Ashley Wylie, at 1645 hours March 21, 2016. Final report concurs with initial preliminary interpretation.
[2016-03-21] MEDS: WARFARIN SODIUM 2 MG TAB PO SCH (16:55)
[2016-03-21] MEDS: PHENYTOIN SODIUM EXTENDED 100 MG CAP PO SCH (19:58)
[2016-03-21] MEDS: METOPROLOL TARTRATE 50 MG TAB PO SCH (19:58)
[2016-03-22] MEDS: VANCOMYCIN 125 MG/2.5 ML UDL PO SCH ×4 (05:42→22:41)
[2016-03-22 06:35] LABS: INR 2.08 (0.83-1.16); PROTIME(PATIENT) 23.5 SEC (12.0-15.0)
[2016-03-22] MEDS: METOPROLOL TARTRATE 50 MG TAB PO SCH ×2 (09:16→22:41)
[2016-03-22] MEDS: PROPAFENONE HCL 150 MG TAB PO SCH ×2 (09:16→22:41)
[2016-03-22] MEDS: ENALAPRIL MALEATE 20 MG TAB PO SCH (09:16)
--- NOTE | 2016-03-22 10:01 | GCON ---
[f rep st] CONSULTATION NEUROLOGIC CONSULTATION REFERRING PHYSICIAN: Ashley Wylie MD HISTORY: The patient is a 65-year-old gentleman who I am asked to see in neurologic consultation reg arding some decrease in his baseline mental status. I have reviewed the case in detail through the [facility] records, as well as discussions with the patient's nurse, his daughter is on the phone and hi s is in the room. We are communicating through the geodetic surveyor who also knows the patient and ex plained to me that at his baseline he basically hardly speaks, although he sometimes can speak some w ords. He often is rather lethargic. He has been hospitalized intermittently and has had a prior his tory of stroke which did cause some relative left-sided weakness, but that has been relatively stable . Since the last several days, his general state has been 1 of less interaction and a little more ge neralized weakness. At his baseline, he tends to have partial understanding of what is stated to him and he can sometimes communicate effectively. He recognizes family members and can generally expres s his needs with direct questioning, although this is variable and often there is a delay in his resp onsiveness. When he came to the hospital on this occasion, he had been previously seen for hyponatre [place] and had experienced a urinary tract infection and was treated, but then developed Clostridium dif ficile. He had developed diarrhea and fever. In the last couple of days, he had also been on Flagyl and the degree of responsiveness was getting less and less oral intake. As a result, he was brought to the hospital. The patient is unable to communicate effectively currently and is very sleepy. REVIEW OF SYSTEMS: A 10-point review of systems via review with family suggests nothing more than wh at is described above. PAST MEDICAL HISTORY: As outlined above with prior strokes, left-sided weakness and some trouble swa llowing. History of atrial fibrillation, on anticoagulation. Diabetes type 2, hypertension, history of seizure and prior aspiration pneumonia. SOCIAL HISTORY: He lives with his family. No smoking or alcohol. FAMILY HISTORY: Noncontributory. MEDICATIONS: Prior to admission: Coumadin, Vasotec, Lopressor, Dilantin, and Rythmol. He is curren tly on vancomycin in addition to his regular home medications. ALLERGIES: No known drug allergies. PHYSICAL EXAM: VITAL SIGNS: Blood pressure 145/86, pulse of 63, respirations 16, oxygen saturation 94%, temperature 36.9. He has remained afebrile during hospitalization. GENERAL: He is an older ma n, lying in the bed, lethargic, in no acute distress. NECK: Supple with no bruits or masses. CARDI AC: Regular rhythm. No prominent murmur. LUNGS: Clear. NEUROLOGIC: Initially he had his eyes cl osed and was very sleepy, and gradually with some mild stimulation with voice and rubbing on his ches t and repeatedly touching his face, he was starting to wake up a little bit with yawning and some pur poseful movement with both hands. He would intermittently follow some commands such as moving his le gs or his left arm. He was not able to vocalize for me. Pupils 3 mm and reactive. Extraocular move ments seem to be intact. I cannot reliably assess visual champion or fundi. He does not have obvious facial asymmetry. Motor testing reveals relatively diffuse weakness in the 3/5 range, but I think pr obably stronger if he is able to give the effort. It is hard to detect clear-cut asymmetry right now . He localizes to touch. The patient's NIH stroke scale is 13, but much of the higher score is related to the degree that he c annot participate well in the motor exam. Many of the deficits may very well be old also. His brain MRI shows multiple areas of old ischemic change and some new ischemia, a very small lesion in the left [place] and right cerebellum, but these are only a few millimeters in size. IMPRESSION: This was a detailed visit with the majority of the time spent counseling and coordinatin g care, reviewing all of the strategies for management. The total unit time for his case was 55 mendel kirsten. He has some new ischemic changes which could be embolic in nature, but probably small vessel re lated. He has a therapeutic INR. He has some cognitive impairment, which is old, and the worsening in the last several days is of uncertain cause. Perhaps the new strokes have contributed but it coul d also just be a fluctuation related to relatively poor oral intake and recent illness with Clostridi um difficile. He seems to be making some progress toward his baseline. He is a little bit below linda t today, according to family, but it sounds as if he is certainly fairly close. I explained to them that as long as he can safely take his oral intake to an adequate level, and they feel comfortable, t hen they would be able to get him home as soon as they feel he is back to his established baseline. He is certainly at risk for recurrent problems with the relative mobility and his general weakness ca n be expected decline if he is not able to get more active. But these lesions of new stroke in the l eft [place] and right cerebellum are so small that I do not know that they are actually contributing dir ectly to any of these new complaints. In any case, we will continue the anticoagulant therapy. He i s not on statin therapy, but that would be appropriate to add for secondary stroke prophylaxis. If anay shaikh is cleared from a medical standpoint, he can certainly be discharged from my standpoint as soon as the family is comfortable with his situation. We talked about the possibility of SNF, but they are s trongly opposed to that, so I do not think that is realistic. They are going to prefer to take care of him over any other plan as soon as possible. /[id number]/MODL
--- NOTE | 2016-03-22 14:41 | HOSPPROG ---
Hospitalist Progress Note Assessment/Plan: 65-year-old with multi infarct dementia is admitted with increasing weakness and lethargy. Infectious workup revealed C diff colitis however patient has no abdominal complaints or diarrhea. Electrolytes are all normal. The noted that he was listing more to the right side which is new. MRI showed 2 small lacunar infarcts which are new certainly his decline could be multifactorial given his dementia, and C diff colitis and these new infarcts. The patient has improved over the last 24 hours of physical therapy. Physical therapy feels that with another day of therapy he would be closer to baseline and safe for discharge home with home care # 65-year-old with progressive dementia. Presents with altered mental status and weakness. Evaluation revealed 2 new infarcts. He is not quite at baseline today but physical therapy has stated he has had some improvement and would prefer he get another 24 hours of physical therapy prior to going home. I talked with the family they would prefer home with home care rather than a rehab evaluation or [facility] * Continue physical therapy for 1 more day * Likely discharge in a.m. with home care * Patient already has all services established at home, he has 24 hour care with his daughter and son # C diff colitis, patient without abdominal pain or tenderness and no diarrhea. Will continue PO. Vanco to complete 10 full days I do not think this is contributing to his acute weakness at this time. # multi infarct dementia on anticoagulation with Coumadin, therapeutic INR # history of seizures, on medication Dispo: Patient likely ready for discharge tomorrow morning home with home care. I did discuss palliative care consult they met with them in February and are willing to meet with them again this can be arranged at home through home care. It sounds like they are not ready to move with hospice and would like to continue treating any medical illness that should arise. A interpreter translator was present throughout the entire visit Subjective: Has not been verbal to me, no specific complaints spent the majority of my visit counseling the and daughter of his overall prognosis and disability. I did discuss palliative care and ongoing hospitalizations at this time they are adamant that they will bring him back to the hospital with any decline in function. Objective: Vital Signs Temp Pulse Resp BP Pulse Ox 36.3 C 72 20 134/73 H 92 03/22/16 11:17 03/22/16 11:17 03/22/16 11:17 03/22/16 11:17 03/22/16 11:17 Laboratory Results 03/21/16 05:32 03/21/16 05:32 03/21/16 03/22/16 03/23/16 05:59 05:59 05:59 Intake Total 500 Balance 500 PT 23.5 SEC (12.0-15.0) H 03/22/16 04:29 INR 2.08 (0.83-1.16) H 03/22/16 04:29 - Time Spent With Patient Time Spent with Patient: greater than 35 minutes Time Spent with Patient: Greater than 35 minutes spent on this patients care, greater than 50% of time spent counseling, educating, and coordinating care regarding the above mentioned plan. - Physical Exam Constitutional: no apparent distress, chronically ill appearing, other (Not verbal) Eyes: PERRL, EOMI Ears, Nose, Mouth, Throat: moist mucous membranes Cardiovascular: regular rate and rhythym, no murmur, rub, or gallop Respiratory: no respiratory distress, clear to auscultation, reduced air movement Gastrointestinal: normoactive bowel sounds, soft, non-tender abdomen, no palpable masses Neurologic: No AAOx3 Psychiatric: poor memory ICD10 Worksheet Patient Problems: Problems Problem Status Diagnosed Lethargy Acute Weakness Acute ROBB (acute kidney injury) Acute Acute encephalopathy Acute Acute hypernatremia Acute Altered mental status Acute Blood loss anemia Acute C. difficile diarrhea Acute 03/17/16 Dehydration Acute Dementia Acute Femur fracture, left Acute HCAP (healthcare-associated pneumonia) Acute Hypernatremia Acute Overdose of cardiovascular agent Acute Palliative care encounter Acute Pneumonia Acute Sepsis Acute CVA (cerebral vascular accident) Chronic Vascular dementia Chronic
[2016-03-22] MEDS: ATORVASTATIN CALCIUM 10 MG TAB PO SCH (16:02)
[2016-03-22] MEDS: WARFARIN SODIUM 2 MG TAB PO SCH (16:03)
[2016-03-22] MEDS: PHENYTOIN SODIUM EXTENDED 100 MG CAP PO SCH (22:41)
[2016-03-23 05:54] LABS: INR 2.08 (0.83-1.16); PROTIME(PATIENT) 23.5 SEC (12.0-15.0)
[2016-03-23] MEDS: VANCOMYCIN 125 MG/2.5 ML UDL PO SCH ×4 (06:50→20:39)
[2016-03-23] MEDS: METOPROLOL TARTRATE 50 MG TAB PO SCH ×2 (09:23→20:39)
[2016-03-23] MEDS: ENALAPRIL MALEATE 20 MG TAB PO SCH (09:24)
[2016-03-23] MEDS: ATORVASTATIN CALCIUM 10 MG TAB PO SCH (09:24)
[2016-03-23] MEDS: PROPAFENONE HCL 150 MG TAB PO SCH ×2 (09:24→20:39)
--- NOTE | 2016-03-23 09:36 | HOSPPROG ---
Hospitalist Progress Note Assessment/Plan: 65-year-old with multi infarct dementia is admitted with increasing weakness and lethargy. Infectious workup revealed C diff colitis however patient has no abdominal complaints or diarrhea. Electrolytes are all normal. The noted that he was listing more to the right side which is new. MRI showed 2 small lacunar infarcts which are new certainly his decline could be multifactorial given his dementia, and C diff colitis and these new infarcts. # 65-year-old with progressive dementia. Presents with altered mental status and weakness. Evaluation revealed 2 new infarcts * still pretty somnolent weak today - UA is negative. probably too weak to go home at this point and thus will keep the night * Continue physical therapy * Patient already has all services established at home, he has 24 hour care with his daughter and son # C diff colitis, patient without abdominal pain or tenderness and no diarrhea. Will continue PO. Vanco to complete 10 full days I do not think this is contributing to his acute weakness at this time. # multi infarct dementia on anticoagulation with Coumadin, therapeutic INR * statin started # history of seizures, on medication Dispo: Patient likely ready for discharge tomorrow morning home with home care. Dr. Wylie did discuss palliative care consult they met with them in February and are willing to meet with them again this can be arranged at home through home care. It sounds like they are not ready to move with hospice and would like to continue treating any medical illness that should arise. A sensitometrist was present throughout the entire visit Subjective: Pretty somnolent according to and also quite weak. Has been unable to get up. He is eating some. No diarrhea Objective: Vital Signs Temp Pulse Resp BP Pulse Ox 37.3 C 85 18 136/94 H 92 03/23/16 08:00 03/23/16 08:00 03/23/16 08:00 03/23/16 08:00 03/23/16 08:00 Laboratory Results 03/21/16 05:32 03/21/16 05:32 PT 23.5 SEC (12.0-15.0) H 03/23/16 04:24 INR 2.08 (0.83-1.16) H 03/23/16 04:24 - Physical Exam Constitutional: no apparent distress, appears nourished, not in pain Eyes: anicteric sclera Ears, Nose, Mouth, Throat: moist mucous membranes Cardiovascular: regular rate and rhythym, no murmur, rub, or gallop, No edema Respiratory: no respiratory distress, no rales or rhonchi, clear to auscultation Gastrointestinal: normoactive bowel sounds, soft, non-tender abdomen, no palpable masses Neurologic: other ( still sleeping) ICD10 Worksheet Patient Problems: Problems Problem Status Diagnosed Lethargy Acute Weakness Acute ROBB (acute kidney injury) Acute Acute encephalopathy Acute Acute hypernatremia Acute Altered mental status Acute Blood loss anemia Acute C. difficile diarrhea Acute 03/17/16 Dehydration Acute Dementia Acute Femur fracture, left Acute HCAP (healthcare-associated pneumonia) Acute Hypernatremia Acute Overdose of cardiovascular agent Acute Palliative care encounter Acute Pneumonia Acute Sepsis Acute CVA (cerebral vascular accident) Chronic Vascular dementia Chronic
[2016-03-23 10:17] LABS: COLOR YELLOW; LEUKOCYTE ESTERASE,URINE NEGATIVE (NEGATIVE); NITRITE,URINE NEGATIVE (NEGATIVE)
[2016-03-23] MEDS: WARFARIN SODIUM 2 MG TAB PO SCH (16:29)
[2016-03-23] MEDS: PHENYTOIN SODIUM EXTENDED 100 MG CAP PO SCH (20:39)
[2016-03-23 23:39] VITALS: O2SAT 93
[2016-03-24] MEDS: VANCOMYCIN 125 MG/2.5 ML UDL PO SCH ×3 (05:55→16:12)
[2016-03-24 06:25] LABS: INR 2.04 (0.83-1.16); PROTIME(PATIENT) 23.2 SEC (12.0-15.0)
[2016-03-24 07:13] VITALS: BP 147/82; PULSE 69; RESP 18; TEMP 98.4
[2016-03-24] MEDS: PROPAFENONE HCL 150 MG TAB PO SCH (09:32)
[2016-03-24] MEDS: METOPROLOL TARTRATE 50 MG TAB PO SCH (09:32)
[2016-03-24] MEDS: ATORVASTATIN CALCIUM 10 MG TAB PO SCH (09:32)
[2016-03-24] MEDS: ENALAPRIL MALEATE 20 MG TAB PO SCH (09:32)
--- NOTE | 2016-03-24 15:17 | PDIAF ---
- Diagnosis Diagnosis: cva Code Status: Full Code - Medication Management Discharge Medications: Medications to Continue on Transfer Metoprolol Tartrate [Lopressor 100 mg (*)] 50 mg PO BID 06/02/14 [Last Taken 22:00] Propafenone HCl [Rythmol 150mg (*)] 150 mg PO BID #0 tab 11/17/14 [Last Taken 22:00] Warfarin Sodium [Coumadin 2MG (*)] 2 mg PO TUTHSA@16 02/01/16 [Last Taken ] Warfarin Sodium [Coumadin 2MG (*)] 4 mg PO SUMOWEFR@16 02/01/16 [Last Taken ] Phenytoin Sodium Extended [Dilantin (*)] 100 mg PO HS 03/01/16 [Last Taken 02/28 22:00] Enalapril Maleate [Vasotec 20 MG (*)] 20 mg PO DAILY 03/20/16 [Last Taken Unknown] Aspirin 81 mg PO DAILY #0 tablet 03/24/16 [Last Taken Unknown] Vancomycin [Vancocin Oral Liquid] 125 mg PO QID #40 udl 03/24/16 [Last Taken Unknown] Discharge Medications: Refer to the Discharge Home Medication list for PRN reason. - Orders Services needed: Home Care, Registered Nurse, Certified Recording Studio Intern, Physical Therapy, Occupational Therapy, Speech Language Pathologist Home Care Face to Face: I certify that this patient was under my care and that I had the required [id number] encounter meeting the encounter requirements on the discharge day. My findings support the fact that the patient is homebound as defined in CMS Chapter 7 Medicare Benefits Manual 30.1.1, The condition of the patient is such that there exists a normal inability to leave home and consequently, leaving home would require a considerable and taxing effort. Diet Texture: Dysphagia 1 - Pureed, [place] Thick Liquids, Meds Crushed in Puree - Follow Up Care Current Providers and Referrals: Olivia Kent MD [Primary Care Provider] - As per Instructions
--- NOTE | 2016-03-24 16:06 | GDS ---
[f rep st] DISCHARGE SUMMARY DISCHARGE DIAGNOSES: 1. Acute on chronic cerebrovascular accident. 2. History of atrial fibrillation. 3. Positive Clostridium difficile with minimal symptoms of colitis. 4. Multi-infarct dementia. 5. History of seizure. HISTORY: A 65-year-old male with a history of multi-infarct dementia presented with weakness and let hargy. He had a positive C difficile a few days ago. HOSPITAL COURSE: The patient was admitted and was placed on p.o. vancomycin for possible C difficile causing his altered mental status. However, he did not improve and did not have really a lot of sym ptoms of diarrhea. MRI was done of his brain which did show 2 new lacunar infarcts. His INR had bee n slightly subtherapeutic, but only about 1.9. He has remained more lethargic than his baseline. He is quite weak. Physical Therapy has recommended rehab, but family wants to take him home to see if they can manage him at home. He was quite debilitated prior to this last stroke, and his family seem to have managed with that. At this point, we will try discharging home with significant home therap y. In the future, he may elect rehab or even hospice. Discussions were had with family in terms of possible worsening decline due to this last CVA. DISPOSITION: Home. DISCHARGE MEDICATIONS: He is to resume his home medicines, but in addition will be given vancomycin as well as aspirin 81 mg daily. He is to continue his Coumadin. FOLLOWUP INSTRUCTIONS: He was instructed to follow up with his primary care doctor in 1-2 weeks. TIME SPENT: Greater than 30 minutes was spent on discharge. /[id number]/MODL
[2016-03-24] MEDS: WARFARIN SODIUM 2 MG TAB PO SCH (16:12)
== END 2016-03-24 17:06 | disposition home health service (06) ==
LOC: F3E 20:02
PROVIDERS: ADMIT Internal Medicine; ATTEND Internal Medicine
DX: I63.9 Cerebral infarction, unspecified (principal); I69.354 Hemiplegia and hemiparesis following cerebral infarction affecting left non-dominant side; F01.50 Vascular dementia, unspecified severity, without behavioral disturbance, psychotic disturbance, mood disturbance, and anxiety; I48.91 Unspecified atrial fibrillation; A04.7 Enterocolitis due to Clostridium difficile; R53.83 Other fatigue; E11.9 Type 2 diabetes mellitus without complications; G40.909 Epilepsy, unspecified, not intractable, without status epilepticus; I69.398 Other sequelae of cerebral infarction; I67.2 Cerebral atherosclerosis; R00.1 Bradycardia, unspecified; R29.713 NIHSS score 13; I70.0 Atherosclerosis of aorta; Z79.01 Long term (current) use of anticoagulants; Z87.440 Personal history of urinary (tract) infections
CPT/HCPCS: 70450; 70551; 71010; 92526; 92610; 93005; 96360; 97162; 97167; 97530; 97535; 99285; G0378

== ENCOUNTER 2017-03-29 21:59 | Emergency (ER) | payer OTHER ==
[2017-03-29 22:06] VITALS: TEMP 98.2
--- NOTE | 2017-03-29 22:26 | CPEKG ---
Heart Rate: 71 RR Interval: 845 QRSD Interval: 84 QT Interval: 392 QTC Interval: 426 QRS [place]: 68 T Wave [place]: 38 EKG Severity - ABNORMAL ECG - EKG Impression: ATRIAL FIBRILLATION, V-RATE 52-88 EKG Impression: LOW VOLTAGE IN FRONTAL LEADS Electronically Signed By: Sylvia Collins 30-Mar-2017 07:39:06
[2017-03-29] MEDS ORDERED: NS 500 ML IV ONE (22:31)
[2017-03-29] MEDS ORDERED: ASPIRIN 81 MG CHEWABLE TAB PO ONE (22:31)
--- NOTE | 2017-03-29 22:34 | EDPHY ---
H & P Stated Complaint: CP, SOB, cough Time Seen by Provider: 03/29/17 22:11 HPI/ROS: History is obtained using lang interpreter at the bedside. HPI The patient presents with chest pain which began at about 9:00 p.m. Tonight. He was lying down when he yelled out that he was having pain in his chest. He was in tears. He has for the most part nonverbal, and was not able to describe any further what the pain was like. His family noticed that he did not seem short of breath, diaphoretic and was responsive during the episode. He always has a mild cough and sneezing, however these have increased today. He has not had a fever and has been feeling normal during the day with a relatively unremarkable last few days. He is followed at [facility] and was started on Pradaxa today. He was taken off of phenytoin and Coumadin. He lives at home with his and son who are his caregivers. He has for the most part wheelchair and bedbound. He needs help with all of his transfer is after suffering from a stroke. He does not complete any of his ADLs and is oriented though for the most part nonverbal. REVIEW OF SYSTEMS Constitutional: No fever, no chills. Eyes: No discharge. ENT: No sore throat. Cardiovascular: Positive for chest pain, no palpitations. Respiratory: No cough, no shortness of breath. Gastrointestinal: No abdominal pain, no vomiting. Genitourinary: No hematuria. Musculoskeletal: No back pain. Skin: No rashes. Neurological: No headache. PMHx: Multiple CVAs, history of multi-infarct dementia, atrial fibrillation, now on Pradaxa, history of C diff about 1 year ago Soc Hx: Lives at home with and son who are his primary caregivers PHYSICAL General Appearance: Alert, no distress Eyes: Pupils equal and round no pallor or injection ENT, Mouth: Mucous membranes moist Respiratory: There are no retractions, lungs are clear to auscultation Cardiovascular: Regular rate and rhythm Gastrointestinal: Abdomen is soft and non-tender, no masses, bowel sounds normal Neurological: Alert, nonverbal, moves all extremities Skin: Warm and dry, no rashes Musculoskeletal: Neck is supple non tender Extremities: symmetrical, full range of motion Psychiatric: Patient is not agitated Source: Family Exam Limitations: Physical impairment - Medical/Surgical History Hx Asthma: No Hx Chronic Respiratory Disease: No Hx Diabetes: Yes Hx Cardiac Disease: Yes Hx Renal Disease: No Hx Cirrhosis: No Hx Alcoholism: No Hx HIV/AIDS: No Hx Splenectomy or Spleen Trauma: No Other PMH: HTN, x3CVA, aphasic, DMII. cuprous chloride helper present for review patient history - Social History Smoking Status: Never smoked Constitutional: Initial Vital Signs Temperature (C) 36.8 C 03/29/17 22:03 Heart Rate 75 03/29/17 22:03 Respiratory Rate 20 03/29/17 22:03 Blood Pressure 180/113 H 03/29/17 22:03 O2 Sat (%) 95 03/29/17 22:03 O2 Delivery Mode Room Air Allergies/Adverse Reactions: No Known Allergies Allergy (Verified 02/01/16 03:33) Home Medications: Medication Instructions Recorded Metoprolol Tartrate [Lopressor 100 50 mg PO BID 06/02/14 mg (*)] Propafenone HCl [Rythmol 150mg (*)] 150 mg PO BID #0 tab 11/17/14 Warfarin Sodium [Coumadin 2MG (*)] 2 mg PO TUTHSA@16 02/01/16 Warfarin Sodium [Coumadin 2MG (*)] 4 mg PO SUMOWEFR@16 02/01/16 Phenytoin Sodium Extended 100 mg PO HS 03/01/16 [Dilantin (*)] Enalapril Maleate [Vasotec 20 MG 20 mg PO DAILY 03/20/16 (*)] Aspirin 81 mg PO DAILY #0 tablet 03/24/16 Vancomycin [Vancocin Oral Liquid] 125 mg PO QID #40 udl 03/24/16 Medical Decision Making - Diagnostics EKG Interpretation: EKG: Complete interpretation has been separately recorded in the [facility] archive. Summary impression: Atrial fibrillation, no ST segment change, unchanged from prior EKG from about 1 year ago. Imaging Results: Imaging Impressions Chest X-Ray 03/29/17 22:31 Impression: Hypoventilation and chronic airways disease. Imaging: Discussed imaging studies w/ on call pharmacy technician Radiologist, I viewed and interpreted images myself Differential Diagnosis: 67-year-old man with history of multi-infarct dementia, multiple CVAs, atrial fibrillation on anticoagulation who presents today with an episode of chest pain at 9:00 p.m. While at rest. He cried out in pain. On review of systems, he has increased sneezing and coughing over the last 1 day. Otherwise feeling well. He did have a change in his medications, now on Pradaxa and taken off of Coumadin as well as phenytoin. On exam, he is hypertensive, other vital signs are normal, he is coughing and sneezing in the room. Differential diagnosis includes ACS, pulmonary embolism, pneumonia, pneumothorax , influenza, GERD, musculoskeletal pain. Differential must remain broad given patient is not adequate historian. Patient given aspirin here. EKG shows atrial fibrillation and is unchanged from prior with no ischemic change. Labs were checked and were relatively unremarkable. I discussed with the patient's and son admission for chest pain evaluation. They say he is feeling so much better they would prefer to take him home. I explained that without admitting him to the hospital we cannot rule out ACS completely, as a provocative test would need to be performed. He has been in the hospital not infrequently and they would like to keep him at home as much as possible. Given his multiple medical problems, I feel this is reasonable. He can follow up with his primary care doctor as needed. I have advised them to bring him back to the emergency department if he is worse in any way. - Data Points Laboratory Results: Laboratory Results 03/30/17 00:03 03/29/17 22:35 03/30/17 03/29/17 03/29/17 00:03 23:00 23:00 WBC 6.01 10^3/uL 10^3/uL (3.80-9.50) RBC 4.72 10^6/uL 10^6/uL (4.40-6.38) Hgb 14.5 g/dL g/dL (13.7-17.5) Hct 42.5 % % (40.0-51.0) MCV 90.0 fL fL (81.5-99.8) MCH 30.7 pg pg (27.9-34.1) MCHC 34.1 g/dL g/dL (32.4-36.7) RDW 13.5 % % (11.5-15.2) Plt Count 131 10^3/uL L 10^3/uL (150-400) MPV 11.8 fL H fL (8.7-11.7) Neut % (Auto) 66.1 % % (39.3-74.2) Lymph % (Auto) 17.8 % % (15.0-45.0) [place] % (Auto) 8.7 % % (4.5-13.0) Eos % (Auto) 6.2 % % (0.6-7.6) Baso % (Auto) 1.0 % % (0.3-1.7) Nucleat RBC Rel Count 0.0 % % (0.0-0.2) Absolute Neuts (auto) 3.98 10^3/uL 10^3/uL (1.70-6.50) Absolute Lymphs (auto) 1.07 10^3/uL 10^3/uL (1.00-3.00) Absolute Monos (auto) 0.52 10^3/uL 10^3/uL (0.30-0.80) Absolute Eos (auto) 0.37 10^3/uL 10^3/uL (0.03-0.40) Absolute Basos (auto) 0.06 10^3/uL 10^3/uL (0.02-0.10) Absolute Nucleated RBC 0.00 10^3/uL 10^3/uL (0-0.01) Immature Gran % 0.2 % % (0.0-1.1) Immature Gran # 0.01 10^3/uL 10^3/uL (0.00-0.10) PT 15.9 SEC H SEC (12.0-15.0) INR 1.25 H (0.83-1.16) APTT 20.0 SEC L SEC (23.0-38.0) D-Dimer 0.60 ug/mLFEU H ug/mLFEU (0.00-0.50) Sodium Potassium Chloride Carbon Dioxide Anion Gap BUN Creatinine Estimated GFR Glucose Calcium Troponin I Specimen Hemolysis Nasal Influenza A PCR NEGATIVE FOR FLU A (NEGATIVE) Nasal Influenza B PCR NEGATIVE FOR FLU B (NEGATIVE) RSV (PCR) NEGATIVE FOR RSV (NEGATIVE) 03/29/17 03/29/17 23:00 22:35 WBC REJ RBC REJ Hgb REJ Hct REJ MCV REJ MCH REJ MCHC REJ RDW REJ Plt Count REJ MPV REJ Neut % (Auto) REJ Lymph % (Auto) REJ [place] % (Auto) REJ Eos % (Auto) REJ Baso % (Auto) REJ Nucleat RBC Rel Count REJ Absolute Neuts (auto) REJ Absolute Lymphs (auto) REJ Absolute Monos (auto) REJ Absolute Eos (auto) REJ Absolute Basos (auto) REJ Absolute Nucleated RBC REJ Immature Gran % REJ Immature Gran # REJ PT INR APTT D-Dimer Sodium 138 mEq/L mEq/L (135-145) Potassium 5.6 mEq/L H mEq/L (3.5-5.2) Chloride 107 mEq/L mEq/L (97-110) Carbon Dioxide 20 mEq/l L mEq/l (22-31) Anion Gap 11 mEq/L mEq/L (8-16) BUN 11 mg/dL mg/dL (7-23) Creatinine 0.9 mg/dL mg/dL (0.7-1.3) Estimated GFR > 60 Glucose 104 mg/dL H mg/dL (70-100) Calcium 8.2 mg/dL L mg/dL (8.5-10.4) Troponin I < 0.012 ng/mL ng/mL (0.000-0.034) Specimen Hemolysis 194 Nasal Influenza A PCR Nasal Influenza B PCR RSV (PCR) Medications Given: Discontinued Medications Aspirin (Aspirin) 324 mg PO EDNOW ONE Stop: 03/29/17 22:32 Last Admin: 03/29/17 23:10 Dose: 324 mg Sodium Chloride (Ns) 500 mls @ 1,000 mls/hr IV EDNOW ONE PRN Reason: Protocol Stop: 03/29/17 23:00 Last Admin: 03/29/17 23:11 Dose: 500 mls Departure - Departure Disposition: Home, Routine, Self-Care Clinical Impression: Chest pain Condition: Good Instructions: Chest Pain (ED) Additional Instructions: Please call your doctor tomorrow to arrange for a follow-up appointment. Return to the emergency department if your worse in any way. Referrals: Olivia Kent MD [Primary Care Provider] - As per Instructions
[2017-03-30 00:07] LABS: INR 1.25 (0.83-1.16); PROTIME(PATIENT) 15.9 SEC (12.0-15.0)
[2017-03-30 00:11] LABS: PLATELET COUNT 131 10^3/uL (150-400)
[2017-03-30 00:23] VITALS: O2SAT 96
[2017-03-30 02:00] VITALS: BP 178/106; PULSE 74; RESP 16
== END 2017-03-30 02:00 | disposition home or self-care (01) ==
DX: R07.9 Chest pain, unspecified (principal); I10 Essential (primary) hypertension; E86.9 Volume depletion, unspecified; Z79.01 Long term (current) use of anticoagulants; Z79.82 Long term (current) use of aspirin; Z86.73 Personal history of transient ischemic attack (TIA), and cerebral infarction without residual deficits